=== PATIENT | female | born 1940 | race American Indian/Alaskan Native ===

== ENCOUNTER 2020-08-08 14:50 | Emergency (ER) | payer MEDICARE, OTHER ==
--- NOTE | 2020-08-08 16:16 | Emergency Department Report ---
HPI <NOLBERTO FINCH - Last Filed: 08/08/20 20:35> - HPI HPI: This is an 80-year-old -[place] female presents to the emergency department via EMS from her personal [facility] with the complaint of some low blood pressure. EMS found the patient had a blood pressure of about 90/60. The patient's blood pressure is within normal limits upon arrival here and the patient did not receive any IV fluid or any other treatments in route. The patient has a history of dementia. She told me that she feels "cold", but otherwise is not answering most questions. I spoke to the patient's son, who says that she will answer questions occasionally "when she feels like it." However, the patient is usually no better than AAO x1 to person, but not place or time. Apparently the patient's recruiting and selection consultant told the son that she has been dealing with some constipation and may have told the recruiting and selection consultant that she was having some throat pain. <FERNIEHENRIK S - Last Filed: 08/10/20 16:35> - General Chief Complaint: Altered Mental Status Time Seen by Provider: 08/08/20 15:27 ED Past Medical Hx <NOLBERTO FINCH - Last Filed: 08/08/20 20:35> - Past Medical History Previous Medical History?: Yes Hx Dementia: Yes - Surgical History Additional Surgical History: CONSTIPATION - Social History Smoking Status: Unknown if ever smoked <HENRIK ENCISO - Last Filed: 08/10/20 16:35> - Medications Home Medications: Home Medications Medication Instructions Recorded Confirmed Last Taken Type Docusate Sodium [Colace] 100 mg PO QDAY PRN #15 capsule 08/08/20 Unknown Rx ED Review of Systems ROS: Stated complaint: HYPOTENSIVE Other details as noted in HPI <NOLBERTO FINCH - Last Filed: 08/08/20 20:35> ROS: Stated complaint: HYPOTENSIVE Other details as noted in HPI Comment: Unobtainable due to pts medical conditions <FERNIEHENRIK Ellis - Last Filed: 08/10/20 16:35> Physical Exam - Physical Exam Vital Signs: Vital Signs 08/08/20 08/08/20 08/08/20 15:15 19:28 20:20 Temperature 97.8 F Pulse Rate 84 102 H Respiratory 18 18 Rate Blood Pressure 143/76 118/99 [Right] O2 Sat by Pulse 98 Oximetry <NOLBERTO FINCH - Last Filed: 08/08/20 20:35> - Physical Exam Vital Signs: Vital Signs 08/08/20 15:15 Pulse Rate 84 Blood Pressure 143/76 [Right] Physical Exam: GENERAL: The patient is well-developed well-nourished. HENT: Normocephalic. Atraumatic. Patient has moist mucous membranes. No tonsillar hypertrophy, erythema or exudates. EYES: Extraocular motions are intact. NECK: Supple. Trachea is midline. CHEST/LUNGS: Clear to auscultation. There is no respiratory distress noted. HEART/CARDIOVASCULAR: Regular. There is no tachycardia. There is no murmur. ABDOMEN: Abdomen is soft, nontender. Patient has normal bowel sounds. There is no abdominal distention. SKIN: Skin is warm and dry. NEURO: The patient is awake, but confused. Follows some commands. Withdraws from painful stimuli. MUSCULOSKELETAL: There is no tenderness or deformity. RECTAL: Stool is brown. No gross hematochezia or melena seen. <HENRIK ENCISO S - Last Filed: 08/10/20 16:35> ED Course Vital Signs 08/08/20 08/08/20 08/08/20 15:15 19:28 20:20 Temperature 97.8 F Pulse Rate 84 102 H Respiratory 18 18 Rate Blood Pressure 143/76 118/99 [Right] O2 Sat by Pulse 98 Oximetry - Reevaluation(s) Reevaluation #1: 08/08/20 20:35 The patient is in no acute distress. Heart rate 75 bpm. Urinalysis not con sistent with urinary tract infection. Patient resting comfortably on stretcher, does not appear to be in any acute distress. Plan for discharge. <NOLBERTO FINCH - Last Filed: 08/08/20 20:35> Vital Signs 08/08/20 15:15 Pulse Rate 84 Blood Pressure 143/76 [Right] <HENRIK ENCISO S - Last Filed: 08/10/20 16:35> ED Medical Decision Making - Lab Data Result diagrams: 08/08/20 16:11 08/08/20 16:11 Vital Signs 08/08/20 08/08/20 08/08/20 15:15 19:28 20:20 Temperature 97.8 F Pulse Rate 84 102 H Respiratory 18 18 Rate Blood Pressure 143/76 118/99 [Right] O2 Sat by Pulse 98 Oximetry Lab Results 08/08/20 08/08/20 08/08/20 Range/Units 16:11 16:11 16:11 WBC 9.6 (4.5-11.0) K/mm3 RBC 5.17 H (3.65-5.03) M/mm3 Hgb 14.3 (10.1-14.3) gm/dl Hct 43.1 H (30.3-42.9) % MCV 83 (79-97) fl MCH 28 (28-32) pg MCHC 33 (30-34) % RDW 15.6 H (13.2-15.2) % Plt Count 247 (140-440) K/mm3 Lymph % (Auto) 8.1 L (13.4-35.0) % [place] % (Auto) 5.1 (0.0-7.3) % Eos % (Auto) 0.3 (0.0-4.3) % Baso % (Auto) 0.1 (0.0-1.8) % Lymph # (Auto) 0.8 L (1.2-5.4) K/mm3 [place] # (Auto) 0.5 (0.0-0.8) K/mm3 Eos # (Auto) 0.0 (0.0-0.4) K/mm3 Baso # (Auto) 0.0 (0.0-0.1) K/mm3 Seg Neutrophils % 86.4 H (40.0-70.0) % Seg Neutrophils # 8.3 H (1.8-7.7) K/mm3 Sodium 139 (137-145) mmol/L Potassium 3.1 L (3.6-5.0) mmol/L Chloride 105.4 (98-107) mmol/L Carbon Dioxide 23 (22-30) mmol/L Anion Gap 14 mmol/L BUN 19 H (7-17) mg/dL Creatinine 0.7 (0.6-1.2) mg/dL Estimated GFR > 60 ml/min BUN/Creatinine Ratio 27 % Glucose 97 (65-100) mg/dL Calcium 8.9 (8.4-10.2) mg/dL Total Bilirubin 0.40 (0.1-1.2) mg/dL AST 27 (5-40) units/L ALT 16 (7-56) units/L Alkaline Phosphatase 84 (35-129) units/L Ammonia 45.0 (25-60) umol/L Troponin T < 0.010 (0.00-0.029) ng/mL Total Protein 7.2 (6.3-8.2) g/dL Albumin 3.9 (3.9-5) g/dL Albumin/Globulin Ratio 1.2 % TSH (0.270-4.200) mlU/mL Urine Color (Yellow) Urine Turbidity (Clear) Urine pH (5.0-7.0) Ur Specific [place] (1.003-1.030) Urine Protein (Negative) mg/dL Urine Glucose (UA) (Negative) mg/dL Urine Ketones (Negative) mg/dL Urine Blood (Negative) Urine Nitrite (Negative) Urine Bilirubin (Negative) Urine Urobilinogen (<2.0) mg/dL Ur Leukocyte Esterase (Negative) Urine WBC (Auto) (0.0-6.0) /HPF Urine RBC (Auto) (0.0-6.0) /HPF Urine Mucus /HPF 08/08/20 08/08/20 Range/Units 16:11 19:27 WBC (4.5-11.0) K/mm3 RBC (3.65-5.03) M/mm3 Hgb (10.1-14.3) gm/dl Hct (30.3-42.9) % MCV (79-97) fl MCH (28-32) pg MCHC (30-34) % RDW (13.2-15.2) % Plt Count (140-440) K/mm3 Lymph % (Auto) (13.4-35.0) % [place] % (Auto) (0.0-7.3) % Eos % (Auto) (0.0-4.3) % Baso % (Auto) (0.0-1.8) % Lymph # (Auto) (1.2-5.4) K/mm3 [place] # (Auto) (0.0-0.8) K/mm3 Eos # (Auto) (0.0-0.4) K/mm3 Baso # (Auto) (0.0-0.1) K/mm3 Seg Neutrophils % (40.0-70.0) % Seg Neutrophils # (1.8-7.7) K/mm3 Sodium (137-145) mmol/L Potassium (3.6-5.0) mmol/L Chloride (98-107) mmol/L Carbon Dioxide (22-30) mmol/L Anion Gap mmol/L BUN (7-17) mg/dL Creatinine (0.6-1.2) mg/dL Estimated GFR ml/min BUN/Creatinine Ratio % Glucose (65-100) mg/dL Calcium (8.4-10.2) mg/dL Total Bilirubin (0.1-1.2) mg/dL AST (5-40) units/L ALT (7-56) units/L Alkaline Phosphatase (35-129) units/L Ammonia (25-60) umol/L Troponin T (0.00-0.029) ng/mL Total Protein (6.3-8.2) g/dL Albumin (3.9-5) g/dL Albumin/Globulin Ratio % TSH 6.850 H (0.270-4.200) mlU/mL Urine Color Yellow (Yellow) Urine Turbidity Clear (Clear) Urine pH 6.0 (5.0-7.0) Ur Specific [place] 1.027 (1.003-1.030) Urine Protein 30 mg/dl (Negative) mg/dL Urine Glucose (UA) Neg (Negative) mg/dL Urine Ketones Neg (Negative) mg/dL Urine Blood Neg (Negative) Urine Nitrite Neg (Negative) Urine Bilirubin Neg (Negative) Urine Urobilinogen 4.0 (<2.0) mg/dL Ur Leukocyte Esterase Neg (Negative) Urine WBC (Auto) 1.0 (0.0-6.0) /HPF Urine RBC (Auto) 1.0 (0.0-6.0) /HPF Urine Mucus 2+ /HPF - Radiology Data [facility] [address] [place] [address] XRay Report Signed Patient: YANE ALEJANDRO MR#: [id number] : 1940 Acct:[id number] Age/Sex: 80 / F ADM Date: 08/08/20 Loc: ED Attending Dr: Ordering Physician: HENRIK ENCISO DO Date of Service: 08/08/20 Procedure(s): XR abd series w cxr 1V Accession Number(s): [id number] cc: HENRIK ENCISO DO Fluoro Time In Minutes: XR abd series w cxr 1V INDICATION / CLINICAL INFORMATION: cough, abd pain. COMPARISON: None available. FINDINGS: SUPPORT DEVICES: None. HEART / MEDIASTINUM: No significant abnormality. LUNGS / PLEURA: Lungs are clear. Costophrenic sulci are sharp. No pneumothorax. ABDOMEN: Large quantity of stool no rectum. Nonobstructive bowel gas pattern. No pneumoperitoneum. ADDITIONAL FINDINGS: No significant additional findings. IMPRESSION: 1. No acute findings. 2. Large quantity of stool in the rectum. Correlate for rectal impaction. Signer Name: Jordan Kirk MD Signed: 08/08/2020 5:23 PM Workstation Name: [id number] Transcribed By: EMMANUELLE Dictated By: Jordan Kirk MD Electronically Authenticated By: Jordan Kirk MD Signed Date/Time: 08/08/20 1723 <NOLBERTO FINCH - Last Filed: 08/08/20 20:35> - Lab Data Result diagrams: 08/08/20 16:11 08/08/20 16:11 - EKG Data -: EKG Interpreted by Me EKG shows normal: sinus rhythm, axis, intervals, QRS complexes, ST-T waves Rate: normal - EKG Data When compared to previous EKG there are: previous EKG unavailable Interpretation: normal EKG - Radiology Data Radiology results: image reviewed interpreted by me: Chest x-ray does not show any acute process. There are no pleural effusions, obvious pneumonia and there is no pneumothorax. No significant cardiomegaly. Abdominal x-ray shows increased stool volume with some concern for possible fecal impaction. No free air. Bowel gas is nonobstructive in appearance. - Medical Decision Making This patient was sent in from her personal [facility] with concern for some borderline hypotension with a blood pressure of about 90/60. The patient's blood pressure improved upon arrival and has remained throughout her ED course thus far. Patient's labs have been mostly unremarkable including CBC and metabolic panel except for some mild hypokalemia with a potassium of 3.1 and concern for some hypothyroidism with a TSH of about 6.8. She was given some potassium chloride. Chest x-ray did not show any pneumonia, pleural effusions, pneumothorax, or any other acute process. Abdominal x-ray shows increased stool volume with concern for rectal impaction. Otherwise it shows nonspecific nonobstructive bowel gas. I attempted a fecal disimpaction. I was not able to remove much stool from the rectum. However, shortly afterwards the patient had a bowel movement. Patient had a straight cath and I am waiting for the urinalysis to see if the patient has a UTI. I once again spoke with the patient's son and updated him regarding all of the lab and imaging findings. He says that he will be happy to come and scrap picker his mother from the emergency department upon discharge. Per my discussions with the patient's son, she appears to be at her baseline mental status with her history of dementia. <HENRIK ENCISO S - Last Filed: 08/10/20 16:35> Critical care attestation.: If time is entered above; I have spent that time in minutes in the direct care of this critically ill patient, excluding procedure time. <JOSETTENOLBERTO - Last Filed: 08/08/20 20:35> Critical Care Time: No Critical care attestation.: If time is entered above; I have spent that time in minutes in the direct care of this critically ill patient, excluding procedure time. <HENRIK ENCISO S - Last Filed: 08/10/20 16:35> ED Disposition Is pt being admited?: No Does the pt Need Aspirin: No <JOSETTENOLBERTO - Last Filed: 08/08/20 20:35> Is pt being admited?: No <HENRIK ENCISO S - Last Filed: 08/10/20 16:35> Clinical Impression: Hypokalemia, Increased stool volume Dementia Qualifiers: Dementia type: unspecified type Dementia behavioral disturbance: without behavioral disturbance Qualified Code(s): F03.90 - Unspecified dementia without behavioral disturbance Disposition: DC-01 TO HOME OR SELFCARE Condition: Stable Instructions: Hypokalemia, Constipation, Adult, Dementia Additional Instructions: Please follow-up with your primary care physician in the next few days. Return to the emergency department with any worsening of your symptoms, new or concerning symptoms not addressed during this current emergency department visit, or with any acute distress. Prescriptions: Docusate Sodium [Colace] 100 mg PO QDAY PRN #15 capsule PRN Reason: Constipation Referrals: MICHELINE DE JESUS MD [Primary Care Provider] - 2-3 Days
[2020-08-08 16:39] LABS: Basophils % (Auto) 0.1 % (0.0-1.8); Eosinophils % (Auto) 0.3 % (0.0-4.3); Hematocrit 43.1 % (30.3-42.9); Hemoglobin 14.3 gm/dl (10.1-14.3); Lymphocytes # (Auto) 0.8 K/mm3 (1.2-5.4); Lymphocytes % (Auto) 8.1 % (13.4-35.0); Mean Corpuscular HGB Conc 33 % (30-34); Mean Corpuscular Volume 83 fl (79-97); Monocytes # (Auto) 0.5 K/mm3 (0.0-0.8); Monocytes % (Auto) 5.1 % (0.0-7.3); Platelet Count 247 K/mm3 (140-440); Red Blood Count 5.17 M/mm3 (3.65-5.03); Red Cell Distribution Width 15.6 % (13.2-15.2)
[2020-08-08 17:18] LABS: Alanine Aminotransferase 16 units/L (7-56); Albumin 3.9 g/dL (3.9-5); Blood Urea Nitrogen 19 mg/dL (7-17); Calcium 8.9 mg/dL (8.4-10.2); Hemolysis Index 8
[2020-08-08] MEDS ORDERED: POTASSIUM CHLORIDE ER 10 MEQ TAB PO ONE (17:22)
[2020-08-08 17:25] LABS: BUN/Creatinine Ratio 27
--- NOTE | 2020-08-08 17:27 | XRay Report ---
XR abd series w cxr 1V INDICATION / CLINICAL INFORMATION: cough, abd pain. COMPARISON: None available. FINDINGS: SUPPORT DEVICES: None. HEART / MEDIASTINUM: No significant abnormality. LUNGS / PLEURA: Lungs are clear. Costophrenic sulci are sharp. No pneumothorax. ABDOMEN: Large quantity of stool no rectum. Nonobstructive bowel gas pattern. No pneumoperitoneum. ADDITIONAL FINDINGS: No significant additional findings. IMPRESSION: 1. No acute findings. 2. Large quantity of stool in the rectum. Correlate for rectal impaction. Signer Name: Jordan Kirk MD Signed: 08/08/2020 5:23 PM Workstation Name: [id number]
[2020-08-08 20:12] LABS: Bilirubin,Urine NEG (Negative); Blood,Urine NEG (Negative); Color,Urine Yellow (Yellow); Mucus,Urine 2+ /HPF
[2020-08-08 21:31] VITALS: BP 156/98
--- NOTE | 2020-08-10 10:37 | Electrocardiograph Report ---
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
== END 2020-08-08 21:43 | disposition home or self-care (01) ==
LOC: ED 14:50
DX: F03.90 Unspecified dementia, unspecified severity, without behavioral disturbance, psychotic disturbance, mood disturbance, and anxiety (principal); E87.6 Hypokalemia; K59.00 Constipation, unspecified; Z98.890 Other specified postprocedural states; Z79.899 Other long term (current) drug therapy
CPT/HCPCS: 36415; 74022; 80053; 81001; 82140; 84443; 84484; 85025; 93005

== ENCOUNTER 2020-08-10 11:30 | Inpatient (IN) | payer MEDICARE, OTHER ==
[2020-08-10] MEDS ORDERED: SODIUM CHLORIDE 0.9% 1000 ML 1,000 ML IV ONE ×2 (12:11→14:46)
--- NOTE | 2020-08-10 12:48 | XRay Report ---
CHEST 1 VIEW 08/10/2020 11:42 AM INDICATION / CLINICAL INFORMATION: Altered Mental Status. COMPARISON: 08/08/20 FINDINGS: SUPPORT DEVICES: None. HEART / MEDIASTINUM: No significant abnormality. LUNGS / PLEURA: Interval development of patchy bilateral pulmonary opacities. No pneumothorax. ADDITIONAL FINDINGS: No significant additional findings. IMPRESSION: 1. Patchy bilateral pulmonary opacities could represent pneumonia. Signer Name: Maulik Mesa MD Signed: 08/10/2020 12:44 PM Workstation Name: [id number]
--- NOTE | 2020-08-10 13:24 | Cat Scan Report ---
CT HEAD WITHOUT CONTRAST INDICATION / CLINICAL INFORMATION: Altered Mental Status. TECHNIQUE: All CT scans at this location are performed using CT dose reduction for ALARA by means of automated e xposure control. COMPARISON: None available. FINDINGS: HEMORRHAGE: No evidence of intracranial hemorrhage or extra-axial fluid collection. EXTRA-AXIAL SPACES: Cortical sulci and sylvian fissures are enlarged reflecting a degree of parenchym al volume loss which is within normal limits for the patient's age of 80 years. Basilar cisterns have an unremarkable appearance. VENTRICULAR SYSTEM: The third and lateral ventricles are mildly enlarged reflecting presence of age r elated parenchymal volume loss. CEREBRAL PARENCHYMA: Periventricular and deep white matter lucency is observed. This is probably seco ndary to microvascular ischemic change. There is no indication of recent infarction. No areas of ence phalomalacia are identified. MIDLINE SHIFT OR HERNIATION: There is no mass effect. CEREBELLUM / BRAINSTEM: Brainstem has an unremarkable appearance. Age related cerebellar atrophy is n oted. MIDLINE STRUCTURES:Pituitary gland has an unremarkable appearance. No abnormalities are seen in the p ineal region. INTRACRANIAL VESSELS:Calcified atherosclerotic plaque is present along the course of the cavernous se gments of both internal carotid arteries. Similar findings are seen at the distal vertebral arteries. ORBITS: Status post bilateral cataract surgery. No additional abnormality. SOFT TISSUES of HEAD: No significant abnormality. CALVARIUM: Moderate hyperostosis is observed along the inner tables of the frontal and parietal bones bilaterally. PARANASAL SINUSES / MASTOID AIR CELLS: An air-fluid levels present in the left sphenoid sinus where c ircumferential mucosal thickening is also observed. Possibility of left sphenoid sinusitis should be considered. Paranasal sinuses are otherwise free from inflammatory mucosal disease. ADDITIONAL FINDINGS: None. IMPRESSION: 1. Age-related involutional changes of parenchymal volume loss and microvascular ischemia. 2. Consider left sphenoid sinusitis. Signer Name: Duane Bhatti MD Signed: 08/10/2020 1:19 PM Workstation Name: [id number]
[2020-08-10 13:39] LABS: Hematocrit 43.5 % (30.3-42.9); Hemoglobin 14.5 gm/dl (10.1-14.3); Mean Corpuscular HGB Conc 33 % (30-34); Mean Corpuscular Volume 84 fl (79-97); Platelet Count 202 K/mm3 (140-440); Red Blood Count 5.19 M/mm3 (3.65-5.03)
[2020-08-10 13:49] LABS: INR 1.37 (0.87-1.13)
[2020-08-10 13:50] LABS: Partial Thromboplastin Time 34.7 Sec. (24.2-36.6)
[2020-08-10] MEDS ORDERED: AZITHROMYCIN/NS 500 MG/250 ML 500 MG/250 ML BAG IV ONE (14:25)
[2020-08-10] MEDS ORDERED: cefTRIAXone/NS 1 GM/50 ML 1 GM/50 ML BAG IV ONE (14:25)
[2020-08-10 14:26] LABS: Alanine Aminotransferase 13 units/L (7-56); Albumin 3.3 g/dL (3.9-5); BUN/Creatinine Ratio 32; Blood Urea Nitrogen 45 mg/dL (7-17); Calcium 9.8 mg/dL (8.4-10.2); Hemolysis Index 10
[2020-08-10 14:30] LABS: Band Neutrophils # (Manual) 1.5 K/mm3; Total Cells Counted 100
[2020-08-10 14:31] LABS: Burr Cells 1+; Platelet Estimate Consistent w Auto; Poikilocytosis 1+
[2020-08-10 14:36] LABS: Bilirubin,Urine SM (Negative); Blood,Urine NEG (Negative); Color,Urine Amber (Yellow); Hyaline Casts,Urine 1 /LPF; Mucus,Urine FEW /HPF
--- NOTE | 2020-08-10 14:46 | Emergency Department Report ---
ED General Adult HPI - General Chief complaint: Altered Mental Status Stated complaint: ALTERED MENTAL STATUS Time Seen by Provider: 08/10/20 12:07 Source: EMS Mode of arrival: Stretcher Limitations: Altered Mental Status - History of Present Illness Initial comments: The patient presents to the emergency department from a local personal long-term for altered mental status. Patient was seen here on Monday for hypotension. Upon the patient's arrival to the emergency department on the previous visit patient was not hypotensive. The patient was also not able to add to the history. -: unknown Improves with: none Worsens with: none Associated Symptoms: denies other symptoms Treatments Prior to Arrival: none - Related Data Previous Rx's Medication Instructions Recorded Last Taken Type Docusate Sodium [Colace] 100 mg PO QDAY PRN #15 capsule 08/08/20 Unknown Rx Allergies Allergy/AdvReac Type Severity Reaction Status Date / Time No Known Allergies Allergy Verified 08/08/20 17:23 ED Review of Systems ROS: Stated complaint: ALTERED MENTAL STATUS Other details as noted in HPI Comment: Unobtainable due to pts medical conditions ED Past Medical Hx - Past Medical History Hx Dementia: Yes - Surgical History Additional Surgical History: CONSTIPATION - Social History Smoking Status: Unknown if ever smoked - Medications Home Medications: Home Medications Medication Instructions Recorded Confirmed Last Taken Type Docusate Sodium [Colace] 100 mg PO QDAY PRN #15 capsule 08/08/20 Unknown Rx ED Physical Exam - General Limitations: Altered Mental Status - ENT ENT exam: Present: mucous membranes dry - Neck Neck exam: Present: normal inspection - Respiratory Respiratory exam: Present: decreased breath sounds. Absent: respiratory distress - Cardiovascular Cardiovascular Exam: Present: tachycardia - GI/Abdominal GI/Abdominal exam: Present: soft, normal bowel sounds. Absent: distended - Extremities Exam Extremities exam: Present: other (Patient has her lower extremities pulled up to her chest and is resistant to me changing positions of her legs which leads me to believe that the patient has baseline contractures) - Neurological Exam Neurological exam: Present: altered, other (Not able to completely assess due to the patient's altered mental status) - Psychiatric Psychiatric exam: Present: other (Not able to assess due to the patient's altered mental status) - Skin Skin exam: Present: warm, dry. Absent: rash ED Course Vital Signs 08/10/20 08/10/20 08/10/20 11:58 12:00 12:10 Pulse Rate 118 H 126 H 130 H Respiratory 31 H 30 H 22 Rate Blood Pressure 115/61 115/78 O2 Sat by Pulse 100 95 99 Oximetry 08/10/20 08/10/20 08/10/20 12:16 12:30 12:56 Pulse Rate 122 H 129 H 125 H Respiratory 33 H 28 H 24 Rate Blood Pressure 115/61 108/73 108/73 O2 Sat by Pulse Oximetry 08/10/20 08/10/20 08/10/20 13:00 13:16 13:30 Pulse Rate 124 H 126 H 126 H Respiratory 36 H 29 H 31 H Rate Blood Pressure 108/73 108/73 108/65 O2 Sat by Pulse 100 98 Oximetry 08/10/20 08/10/20 08/10/20 13:46 14:00 14:16 Pulse Rate 134 H 129 H 123 H Respiratory 23 24 29 H Rate Blood Pressure 108/73 116/78 116/78 O2 Sat by Pulse 98 Oximetry 08/10/20 08/10/20 08/10/20 14:30 14:46 15:00 Pulse Rate 122 H 122 H 125 H Respiratory 24 23 26 H Rate Blood Pressure 128/78 128/78 129/72 O2 Sat by Pulse 96 Oximetry ED Medical Decision Making - Lab Data Result diagrams: 08/10/20 13:12 08/10/20 13:12 Lab Results 08/10/20 08/10/20 08/10/20 Range/Units 13:12 13:12 13:12 WBC 5.1 (4.5-11.0) K/mm3 RBC 5.19 H (3.65-5.03) M/mm3 Hgb 14.5 H (10.1-14.3) gm/dl Hct 43.5 H (30.3-42.9) % MCV 84 (79-97) fl MCH 28 (28-32) pg MCHC 33 (30-34) % RDW 16.0 H (13.2-15.2) % Plt Count 202 (140-440) K/mm3 Add Manual Diff Complete Total Counted 100 Seg Neuts % (Manual) 55.0 (40.0-70.0) % Band Neutrophils % 29.0 % Lymphocytes % (Manual) 10.0 L (13.4-35.0) % Monocytes % (Manual) 5.0 (0.0-7.3) % Metamyelocytes % 1.0 % Nucleated RBC % Not Reportable Seg Neutrophils # Man 2.8 (1.8-7.7) K/mm3 Band Neutrophils # 1.5 K/mm3 Lymphocytes # (Manual) 0.5 L (1.2-5.4) K/mm3 Abs React Lymphs (Man) 0.0 K/mm3 Monocytes # (Manual) 0.3 (0.0-0.8) K/mm3 Eosinophils # (Manual) 0.0 (0.0-0.4) K/mm3 Basophils # (Manual) 0.0 (0.0-0.1) K/mm3 Metamyelocytes # 0.1 K/mm3 Myelocytes # 0.0 K/mm3 Promyelocytes # 0.0 K/mm3 Blast Cells # 0.0 K/mm3 WBC Morphology Not Reportable Hypersegmented Neuts Not Reportable Hyposegmented Neuts Not Reportable Hypogranular Neuts Not Reportable Smudge Cells Not Reportable Toxic Granulation Not Reportable Toxic Vacuolation Not Reportable Dohle Bodies Not Reportable Pelger-Huet Anomaly Not Reportable Muriel Rods Not Reportable Platelet Estimate Consistent w auto Clumped Platelets Not Reportable Plt Clumps, EDTA Not Reportable Large Platelets Not Reportable Giant Platelets Not Reportable Platelet Satelliting Not Reportable Plt Morphology Comment Not Reportable RBC Morphology Not Reportable Dimorphic RBCs Not Reportable Polychromasia Not Reportable Hypochromasia Not Reportable Poikilocytosis 1+ Anisocytosis Not Reportable Microcytosis Not Reportable Macrocytosis Not Reportable Spherocytes Not Reportable Pappenheimer Bodies Not Reportable Sickle Cells Not Reportable Target Cells Not Reportable Tear Drop Cells Not Reportable Ovalocytes Not Reportable Helmet Cells Not Reportable [place] Bodies Not Reportable [place] Rings Not Reportable Natalya Cells 1+ Bite Cells Not Reportable Crenated Cell Not Reportable Elliptocytes Not Reportable Acanthocytes (Spur) Few Rouleaux Not Reportable Hemoglobin C Crystals Not Reportable Schistocytes Not Reportable Malaria parasites Not Reportable Christian Bodies Not Reportable Hem Pathologist Commnt No PT 16.7 H (12.2-14.9) Sec. INR 1.37 H (0.87-1.13) APTT 34.7 (24.2-36.6) Sec. Sodium (137-145) mmol/L Potassium (3.6-5.0) mmol/L Chloride (98-107) mmol/L Carbon Dioxide (22-30) mmol/L Anion Gap mmol/L BUN (7-17) mg/dL Creatinine (0.6-1.2) mg/dL Estimated GFR ml/min BUN/Creatinine Ratio % Glucose (65-100) mg/dL Lactic Acid 3.80 H* (0.7-2.0) mmol/L Calcium (8.4-10.2) mg/dL Total Bilirubin (0.1-1.2) mg/dL AST (5-40) units/L ALT (7-56) units/L Alkaline Phosphatase (35-129) units/L Ammonia (25-60) umol/L Troponin T (0.00-0.029) ng/mL Total Protein (6.3-8.2) g/dL Albumin (3.9-5) g/dL Albumin/Globulin Ratio % Urine Color (Yellow) Urine Turbidity (Clear) Urine pH (5.0-7.0) Ur Specific [place] (1.003-1.030) Urine Protein (Negative) mg/dL Urine Glucose (UA) (Negative) mg/dL Urine Ketones (Negative) mg/dL Urine Blood (Negative) Urine Nitrite (Negative) Urine Bilirubin (Negative) Urine Ictotest (Negative) Urine Urobilinogen (<2.0) mg/dL Ur Leukocyte Esterase (Negative) Urine WBC (Auto) (0.0-6.0) /HPF Urine RBC (Auto) (0.0-6.0) /HPF U Epithel Cells (Auto) (0-13.0) /HPF Hyaline Casts /LPF Urine Mucus /HPF 08/10/20 08/10/20 08/10/20 Range/Units 13:12 13:12 14:33 WBC (4.5-11.0) K/mm3 RBC (3.65-5.03) M/mm3 Hgb (10.1-14.3) gm/dl Hct (30.3-42.9) % MCV (79-97) fl MCH (28-32) pg MCHC (30-34) % RDW (13.2-15.2) % Plt Count (140-440) K/mm3 Add Manual Diff Total Counted Seg Neuts % (Manual) (40.0-70.0) % Band Neutrophils % % Lymphocytes % (Manual) (13.4-35.0) % Monocytes % (Manual) (0.0-7.3) % Metamyelocytes % % Nucleated RBC % Seg Neutrophils # Man (1.8-7.7) K/mm3 Band Neutrophils # K/mm3 Lymphocytes # (Manual) (1.2-5.4) K/mm3 Abs React Lymphs (Man) K/mm3 Monocytes # (Manual) (0.0-0.8) K/mm3 Eosinophils # (Manual) (0.0-0.4) K/mm3 Basophils # (Manual) (0.0-0.1) K/mm3 Metamyelocytes # K/mm3 Myelocytes # K/mm3 Promyelocytes # K/mm3 Blast Cells # K/mm3 WBC Morphology Hypersegmented Neuts Hyposegmented Neuts Hypogranular Neuts Smudge Cells Toxic Granulation Toxic Vacuolation Dohle Bodies Pelger-Huet Anomaly Muriel Rods Platelet Estimate Clumped Platelets Plt Clumps, EDTA Large Platelets Giant Platelets Platelet Satelliting Plt Morphology Comment RBC Morphology Dimorphic RBCs Polychromasia Hypochromasia Poikilocytosis Anisocytosis Microcytosis Macrocytosis Spherocytes Pappenheimer Bodies Sickle Cells Target Cells Tear Drop Cells Ovalocytes Helmet Cells [place] Bodies [place] Rings Natalya Cells Bite Cells Crenated Cell Elliptocytes Acanthocytes (Spur) Rouleaux Hemoglobin C Crystals Schistocytes Malaria parasites Christian Bodies Hem Pathologist Commnt PT (12.2-14.9) Sec. INR (0.87-1.13) APTT (24.2-36.6) Sec. Sodium 142 (137-145) mmol/L Potassium 3.8 D (3.6-5.0) mmol/L Chloride 104.4 (98-107) mmol/L Carbon Dioxide 22 (22-30) mmol/L Anion Gap 19 mmol/L BUN 45 H (7-17) mg/dL Creatinine 1.4 H D (0.6-1.2) mg/dL Estimated GFR 44 ml/min BUN/Creatinine Ratio 32 % Glucose 93 (65-100) mg/dL Lactic Acid 3.40 H* (0.7-2.0) mmol/L Calcium 9.8 (8.4-10.2) mg/dL Total Bilirubin 0.70 (0.1-1.2) mg/dL AST 24 (5-40) units/L ALT 13 (7-56) units/L Alkaline Phosphatase 68 (35-129) units/L Ammonia 36.0 (25-60) umol/L Troponin T < 0.010 (0.00-0.029) ng/mL Total Protein 6.8 (6.3-8.2) g/dL Albumin 3.3 L (3.9-5) g/dL Albumin/Globulin Ratio 0.9 % Urine Color (Yellow) Urine Turbidity (Clear) Urine pH (5.0-7.0) Ur Specific [place] (1.003-1.030) Urine Protein (Negative) mg/dL Urine Glucose (UA) (Negative) mg/dL Urine Ketones (Negative) mg/dL Urine Blood (Negative) Urine Nitrite (Negative) Urine Bilirubin (Negative) Urine Ictotest (Negative) Urine Urobilinogen (<2.0) mg/dL Ur Leukocyte Esterase (Negative) Urine WBC (Auto) (0.0-6.0) /HPF Urine RBC (Auto) (0.0-6.0) /HPF U Epithel Cells (Auto) (0-13.0) /HPF Hyaline Casts /LPF Urine Mucus /HPF 04// Range/Units Unknown WBC (4.5-11.0) K/mm3 RBC (3.65-5.03) M/mm3 Hgb (10.1-14.3) gm/dl Hct (30.3-42.9) % MCV (79-97) fl MCH (28-32) pg MCHC (30-34) % RDW (13.2-15.2) % Plt Count (140-440) K/mm3 Add Manual Diff Total Counted Seg Neuts % (Manual) (40.0-70.0) % Band Neutrophils % % Lymphocytes % (Manual) (13.4-35.0) % Monocytes % (Manual) (0.0-7.3) % Metamyelocytes % % Nucleated RBC % Seg Neutrophils # Man (1.8-7.7) K/mm3 Band Neutrophils # K/mm3 Lymphocytes # (Manual) (1.2-5.4) K/mm3 Abs React Lymphs (Man) K/mm3 Monocytes # (Manual) (0.0-0.8) K/mm3 Eosinophils # (Manual) (0.0-0.4) K/mm3 Basophils # (Manual) (0.0-0.1) K/mm3 Metamyelocytes # K/mm3 Myelocytes # K/mm3 Promyelocytes # K/mm3 Blast Cells # K/mm3 WBC Morphology Hypersegmented Neuts Hyposegmented Neuts Hypogranular Neuts Smudge Cells Toxic Granulation Toxic Vacuolation Dohle Bodies Pelger-Huet Anomaly Muriel Rods Platelet Estimate Clumped Platelets Plt Clumps, EDTA Large Platelets Giant Platelets Platelet Satelliting Plt Morphology Comment RBC Morphology Dimorphic RBCs Polychromasia Hypochromasia Poikilocytosis Anisocytosis Microcytosis Macrocytosis Spherocytes Pappenheimer Bodies Sickle Cells Target Cells Tear Drop Cells Ovalocytes Helmet Cells Read[place] Bodies [place] Rings Natalya Cells Bite Cells Crenated Cell Elliptocytes Acanthocytes (Spur) Rouleaux Hemoglobin C Crystals Schistocytes Malaria parasites Christian Bodies Hem Pathologist Commnt PT (12.2-14.9) Sec. INR (0.87-1.13) APTT (24.2-36.6) Sec. Sodium (137-145) mmol/L Potassium (3.6-5.0) mmol/L Chloride (98-107) mmol/L Carbon Dioxide (22-30) mmol/L Anion Gap mmol/L BUN (7-17) mg/dL Creatinine (0.6-1.2) mg/dL Estimated GFR ml/min BUN/Creatinine Ratio % Glucose (65-100) mg/dL Lactic Acid (0.7-2.0) mmol/L Calcium (8.4-10.2) mg/dL Total Bilirubin (0.1-1.2) mg/dL AST (5-40) units/L ALT (7-56) units/L Alkaline Phosphatase (35-129) units/L Ammonia (25-60) umol/L Troponin T (0.00-0.029) ng/mL Total Protein (6.3-8.2) g/dL Albumin (3.9-5) g/dL Albumin/Globulin Ratio % Urine Color [place] (Yellow) Urine Turbidity Clear (Clear) Urine pH 5.0 (5.0-7.0) Ur Specific [place] 1.026 (1.003-1.030) Urine Protein 30 mg/dl (Negative) mg/dL Urine Glucose (UA) Neg (Negative) mg/dL Urine Ketones Neg (Negative) mg/dL Urine Blood Neg (Negative) Urine Nitrite Neg (Negative) Urine Bilirubin Sm (Negative) Urine Ictotest Negative (Negative) Urine Urobilinogen 4.0 (<2.0) mg/dL Ur Leukocyte Esterase Neg (Negative) Urine WBC (Auto) 4.0 (0.0-6.0) /HPF Urine RBC (Auto) 1.0 (0.0-6.0) /HPF U Epithel Cells (Auto) 1.0 (0-13.0) /HPF Hyaline Casts 1 /LPF Urine Mucus Few /HPF - Radiology Data Radiology results: report reviewed - Medical Decision Making IV antibiotics and IV fluids given Critical Care Time: Yes Critical care time in (mins) excluding proc time.: 35 Critical care attestation.: If time is entered above; I have spent that time in minutes in the direct care of this critically ill patient, excluding procedure time. ED Disposition Clinical Impression: Altered mental status, Bilateral pneumonia, Sepsis Disposition: DC-09 OP ADMIT IP TO THIS HOSP Is pt being admited?: Yes Does the pt Need Aspirin: No Condition: Fair Instructions: Bacterial Pneumonia (ED) Referrals: MICHELINE DE JESUS MD [Primary Care Provider] - 3-5 Days
[2020-08-10 14:47] LABS: Ictotest,Urine Negative (Negative)
[2020-08-10] MEDS ORDERED: ACETAMINOPHEN 650 MG RECT SUPP PR ONE (20:41)
[2020-08-10] MEDS ORDERED: dexAMETHasone 4 MG/ML VIAL IV SCH (23:45)
--- NOTE | 2020-08-10 23:45 | History and Physical Report ---
History of Present Illness Date of examination: 08/10/20 Date of admission: 08/10/20 15:33 Chief complaint: Decreased responsiveness for 1 day History of present illness: 80-year-old female with history of dementia of lives in personal detention sent from there for altered mental status. Patient was seen in the emergency room on Monday which is 2 days ago for hypotension. Patient is a poor historian. Patient is not hypertensive or hypotensive today. Patient has bilateral patchy opacities on the chest x-ray and hypoxic as the admission. - Past Medical History Hx Dementia: Yes - Surgical History Additional Surgical History: None - Social History Smoking Status: Unknown if ever smoked Lives at personal detention Family history unknown - Medications Home Medications: Home Medications Medication Instructions Recorded Confirmed Last Taken Type Docusate Sodium [Colace] 100 mg PO QDAY PRN #15 capsule 08/08/20 Unknown Rx Review of Systems ROS: Constitutional feels weak HEENT no sore throat no post nasal drip no diplopia Neck no neck stiffness no lymph gland enlargement Chest and lungs shortness of breath and cough present. CVS no chest pain no diaphoresis no palpitations GI no nausea no vomiting no diarrhea Genitourinary system no dysuria no flank pain Musculoskeletal system no muscle pains no joint pains [employer] no syncope no seizures Skin no rash no itching Psychiatric no depression no homicidal or suicidal tendencies Hematologic no lymphedema or bruising Endocrine no polydipsia no polyuria no cold intolerance no heat intolerance Medications and Allergies Allergies Allergy/AdvReac Type Severity Reaction Status Date / Time No Known Allergies Allergy Verified 08/08/20 17:23 Home Medications Medication Instructions Recorded Confirmed Last Taken Type Docusate Sodium [Colace] 100 mg PO QDAY PRN #15 capsule 08/08/20 Unknown Rx Exam - Constitutional Vitals: Temp Pulse Resp BP Pulse Ox 99.2 F 111 H 22 126/73 100 08/10/20 23:40 08/10/20 22:30 08/10/20 22:30 08/10/20 22:30 08/10/20 22:30 General appearance: Present: no acute distress, mild distress, well-nourished - EENT Eyes: Present: PERRL ENT: hearing intact, clear oral mucosa - Neck Neck: Present: supple, normal ROM - Respiratory Respiratory effort: normal Respiratory: bilateral: CTA, rhonchi - Cardiovascular Heart rate: 88 Heart Sounds: Present: S1 & S2. Absent: rub, click - Extremities Extremities: pulses symmetrical, No edema Peripheral Pulses: within normal limits - Abdominal General gastrointestinal: Present: soft, non-tender, non-distended, normal bowel sounds Female genitourinary: Present: normal - Integumentary Integumentary: Present: clear, warm, dry - Musculoskeletal Musculoskeletal: gait normal, strength equal bilaterally - Psychiatric Psychiatric: appropriate mood/affect, intact judgment & insight - Neurologic Neurologic: CNII-XII intact, moves all extremities - Allied Health Allied health notes reviewed: nursing, case management HEART Score - HEART Score Troponin: Troponin T < 0.010 ng/mL (0.00-0.029) 08/10/20 13:12 Results - Labs CBC & Chem 7: 08/10/20 13:12 08/10/20 13:12 Labs: Laboratory Last Values WBC 5.1 K/mm3 (4.5-11.0) 08/10/20 13:12 RBC 5.19 M/mm3 (3.65-5.03) H 08/10/20 13:12 Hgb 14.5 gm/dl (10.1-14.3) H 08/10/20 13:12 Hct 43.5 % (30.3-42.9) H 08/10/20 13:12 MCV 84 fl (79-97) 08/10/20 13:12 MCH 28 pg (28-32) 08/10/20 13:12 MCHC 33 % (30-34) 08/10/20 13:12 RDW 16.0 % (13.2-15.2) H 08/10/20 13:12 Plt Count 202 K/mm3 (140-440) 08/10/20 13:12 Add Manual Diff Complete 08/10/20 13:12 Total Counted 100 08/10/20 13:12 Seg Neuts % (Manual) 55.0 % (40.0-70.0) 08/10/20 13:12 Band Neutrophils % 29.0 % 08/10/20 13:12 Lymphocytes % (Manual) 10.0 % (13.4-35.0) L 08/10/20 13:12 Monocytes % (Manual) 5.0 % (0.0-7.3) 08/10/20 13:12 Metamyelocytes % 1.0 % 08/10/20 13:12 Nucleated RBC % Not Reportable 08/10/20 13:12 Seg Neutrophils # Man 2.8 K/mm3 (1.8-7.7) 08/10/20 13:12 Band Neutrophils # 1.5 K/mm3 08/10/20 13:12 Lymphocytes # (Manual) 0.5 K/mm3 (1.2-5.4) L 08/10/20 13:12 Abs React Lymphs (Man) 0.0 K/mm3 08/10/20 13:12 Monocytes # (Manual) 0.3 K/mm3 (0.0-0.8) 08/10/20 13:12 Eosinophils # (Manual) 0.0 K/mm3 (0.0-0.4) 08/10/20 13:12 Basophils # (Manual) 0.0 K/mm3 (0.0-0.1) 08/10/20 13:12 Metamyelocytes # 0.1 K/mm3 08/10/20 13:12 Myelocytes # 0.0 K/mm3 08/10/20 13:12 Promyelocytes # 0.0 K/mm3 08/10/20 13:12 Blast Cells # 0.0 K/mm3 08/10/20 13:12 WBC Morphology Not Reportable 08/10/20 13:12 Hypersegmented Neuts Not Reportable 08/10/20 13:12 Hyposegmented Neuts Not Reportable 08/10/20 13:12 Hypogranular Neuts Not Reportable 08/10/20 13:12 Smudge Cells Not Reportable 08/10/20 13:12 Toxic Granulation Not Reportable 08/10/20 13:12 Toxic Vacuolation Not Reportable 08/10/20 13:12 Dohle Bodies Not Reportable 08/10/20 13:12 Pelger-Huet Anomaly Not Reportable 08/10/20 13:12 Muriel Rods Not Reportable 08/10/20 13:12 Platelet Estimate Consistent w auto 08/10/20 13:12 Clumped Platelets Not Reportable 08/10/20 13:12 Plt Clumps, EDTA Not Reportable 08/10/20 13:12 Large Platelets Not Reportable 08/10/20 13:12 Giant Platelets Not Reportable 08/10/20 13:12 Platelet Satelliting Not Reportable 08/10/20 13:12 Plt Morphology Comment Not Reportable 08/10/20 13:12 RBC Morphology Not Reportable 08/10/20 13:12 Dimorphic RBCs Not Reportable 08/10/20 13:12 Polychromasia Not Reportable 08/10/20 13:12 Hypochromasia Not Reportable 08/10/20 13:12 Poikilocytosis 1+ 08/10/20 13:12 Anisocytosis Not Reportable 08/10/20 13:12 Microcytosis Not Reportable 08/10/20 13:12 Macrocytosis Not Reportable 08/10/20 13:12 Spherocytes Not Reportable 08/10/20 13:12 Pappenheimer Bodies Not Reportable 08/10/20 13:12 Sickle Cells Not Reportable 08/10/20 13:12 Target Cells Not Reportable 08/10/20 13:12 Tear Drop Cells Not Reportable 08/10/20 13:12 Ovalocytes Not Reportable 08/10/20 13:12 Helmet Cells Not Reportable 08/10/20 13:12 Read-[place] Bodies Not Reportable 08/10/20 13:12 [place] Rings Not Reportable 08/10/20 13:12 [place] Cells 1+ 08/10/20 13:12 Bite Cells Not Reportable 08/10/20 13:12 Crenated Cell Not Reportable 08/10/20 13:12 Elliptocytes Not Reportable 08/10/20 13:12 Acanthocytes (Spur) Few 08/10/20 13:12 Rouleaux Not Reportable 08/10/20 13:12 Hemoglobin C Crystals Not Reportable 08/10/20 13:12 Schistocytes Not Reportable 08/10/20 13:12 Malaria parasites Not Reportable 08/10/20 13:12 Christian Bodies Not Reportable 08/10/20 13:12 Hem Pathologist Commnt No 08/10/20 13:12 PT 16.7 Sec. (12.2-14.9) H 08/10/20 13:12 INR 1.37 (0.87-1.13) H 08/10/20 13:12 APTT 34.7 Sec. (24.2-36.6) 08/10/20 13:12 Sodium 142 mmol/L (137-145) 08/10/20 13:12 Potassium 3.8 mmol/L (3.6-5.0) D 08/10/20 13:12 Chloride 104.4 mmol/L (98-107) 08/10/20 13:12 Carbon Dioxide 22 mmol/L (22-30) 08/10/20 13:12 Anion Gap 19 mmol/L 08/10/20 13:12 BUN 45 mg/dL (7-17) H 08/10/20 13:12 Creatinine 1.4 mg/dL (0.6-1.2) H D 08/10/20 13:12 Estimated GFR 44 ml/min 08/10/20 13:12 BUN/Creatinine Ratio 32 % 08/10/20 13:12 Glucose 93 mg/dL (65-100) 08/10/20 13:12 Lactic Acid 2.30 mmol/L (0.7-2.0) H* 08/10/20 22:46 Calcium 9.8 mg/dL (8.4-10.2) 08/10/20 13:12 Total Bilirubin 0.70 mg/dL (0.1-1.2) 08/10/20 13:12 AST 24 units/L (5-40) 08/10/20 13:12 ALT 13 units/L (7-56) 08/10/20 13:12 Alkaline Phosphatase 68 units/L (35-129) 08/10/20 13:12 Ammonia 36.0 umol/L (25-60) 08/10/20 13:12 Troponin T < 0.010 ng/mL (0.00-0.029) 08/10/20 13:12 Total Protein 6.8 g/dL (6.3-8.2) 08/10/20 13:12 Albumin 3.3 g/dL (3.9-5) L 08/10/20 13:12 Albumin/Globulin Ratio 0.9 % 08/10/20 13:12 Urine Color [place] (Yellow) 08/10/20 Unknown Urine Turbidity Clear (Clear) 08/10/20 Unknown Urine pH 5.0 (5.0-7.0) 08/10/20 Unknown Ur Specific [place] 1.026 (1.003-1.030) 08/10/20 Unknown Urine Protein 30 mg/dl mg/dL (Negative) 08/10/20 Unknown Urine Glucose (UA) Neg mg/dL (Negative) 08/10/20 Unknown Urine Ketones Neg mg/dL (Negative) 08/10/20 Unknown Urine Blood Neg (Negative) 08/10/20 Unknown Urine Nitrite Neg (Negative) 08/10/20 Unknown Urine Bilirubin Sm (Negative) 08/10/20 Unknown Urine Ictotest Negative (Negative) 08/10/20 Unknown Urine Urobilinogen 4.0 mg/dL (<2.0) 08/10/20 Unknown Ur Leukocyte Esterase Neg (Negative) 08/10/20 Unknown Urine WBC (Auto) 4.0 /HPF (0.0-6.0) 08/10/20 Unknown Urine RBC (Auto) 1.0 /HPF (0.0-6.0) 08/10/20 Unknown U Epithel Cells (Auto) 1.0 /HPF (0-13.0) 08/10/20 Unknown Hyaline Casts 1 /LPF 08/10/20 Unknown Urine Mucus Few /HPF 08/10/20 Unknown Plasma/Serum Alcohol < 0.01 % (0-0.07) 08/10/20 13:12 - Imaging and Cardiology Chest x-ray: report reviewed (Bilateral patchy opacities) Imaging and Cardiology: Chest x-ray I few bilateral pulmonary opacities could represent pneumonia Assessment and Plan Advance Directives: Yes (Full code) VTE prophylaxis?: Chemical Plan of care discussed with patient/family: Yes - Patient Problems (1) Acute respiratory failure with hypoxia Current Visit: Yes Status: Acute Plan to address problem: Patient on nasal cannula oxygen Titrate oxygen requirement to oxygen needs Keep the oxygen saturations above 92 (2) Bilateral pneumonia Current Visit: Yes Status: Acute Qualifiers: Pneumonia type: due to unspecified organism Plan to address problem: Possible Covid pneumonia Treat as community-acquired pneumonia IV Zithromax and IV Rocephin IV Decadron Stop antibiotics if procalcitonin is negative in 48 hours (3) COVID-19 virus RNA test result positive at limit of detection Current Visit: Yes Status: Acute (4) Pneumonia due to COVID-19 virus Current Visit: Yes Status: Acute Plan to address problem: Possible Covid related pneumonia (5) CARLITA (acute kidney injury) Current Visit: Yes Status: Acute Plan to address problem: Secondary to vasomotor nephropathy Increase fluid intake (6) Dementia Current Visit: Yes Status: Chronic Qualifiers: Dementia type: vascular dementia Plan to address problem: Supportive care (7) DVT prophylaxis Current Visit: Yes Status: Acute Plan to address problem: On heparin and GI prophylaxis
[2020-08-10] MEDS ORDERED: ONDANSETRON 4 MG/2 ML INJ IV PRN (23:58)
[2020-08-10] MEDS ORDERED: ACETAMINOPHEN 325 MG TAB PO PRN (23:58)
[2020-08-11] MEDS ORDERED: DOCUSATE SODIUM 100 MG CAP PO PRN (00:03)
[2020-08-11] MEDS ORDERED: DEXTROSE 50% IN WATER (25GM) 50 ML SYRINGE IV ONE (04:29)
[2020-08-11 06:27] LABS: Hematocrit 41.7 % (30.3-42.9); Hemoglobin 13.9 gm/dl (10.1-14.3); Mean Corpuscular HGB Conc 33 % (30-34); Mean Corpuscular Volume 83 fl (79-97); Platelet Count 190 K/mm3 (140-440); Red Blood Count 5.03 M/mm3 (3.65-5.03); Red Cell Distribution Width 16.1 % (13.2-15.2)
[2020-08-11 07:08] LABS: Alanine Aminotransferase 16 units/L (7-56); Albumin 3.1 g/dL (3.9-5); BUN/Creatinine Ratio 36; Blood Urea Nitrogen 25 mg/dL (7-17); Calcium 8.9 mg/dL (8.4-10.2); Hemolysis Index 1
[2020-08-11 07:32] LABS: Total Cells Counted 100
[2020-08-11 07:34] LABS: Burr Cells 1+; Poikilocytosis 1+
[2020-08-11 07:35] LABS: Dohle Bodies Rare; Platelet Estimate Consistent w Auto
[2020-08-11] MEDS ORDERED: FAMOTIDINE 20 MG TAB PO SCH (10:00)
[2020-08-11] MEDS ORDERED: POTASSIUM CHLORIDE ER 20 MEQ TAB PO SCH (10:00)
[2020-08-11] MEDS: FAMOTIDINE 10 MG TAB PO SCH ×2 (10:10→21:36)
[2020-08-11] MEDS: dexAMETHasone 4 MG/ML VIAL IV SCH (15:30)
[2020-08-11] MEDS: AZITHROMYCIN/NS 500 MG/250 ML 500 MG/250 ML BAG IV SCH (15:31)
[2020-08-11] MEDS: cefTRIAXone/NS 2 GM/100 ML 2 GM/100 ML BAG IV SCH (15:31)
--- NOTE | 2020-08-11 17:10 | Progress Note ---
Assessment and Plan -- Acute respiratory failure with hypoxia Patient on nasal cannula oxygen Titrate oxygen requirement to oxygen needs Keep the oxygen saturations above 92 -- Bilateral pneumonia due to COVID-19 virus Possible Covid pneumonia Treat as community-acquired pneumonia IV Zithromax and IV Rocephin IV Decadron Stop antibiotics if procalcitonin is negative in 48 hours -- CARLITA (acute kidney injury) Secondary to vasomotor nephropathy Increase fluid intake --Sepsis patient has high lactic acid and high white count consistent with sepsis but no hypotension -- Dementia Supportive care --Severe protein calorie malnutrition will consult dietary -- DVT prophylaxis On heparin and GI prophylaxis Daily clinical course: 08/11/20: Continue COVID-19 protocol, COVID-19 PCR is pending. Gentle IV fluid hydration, follow inflammatory markers. Continue empiric antibiotics for now Subjective Date of service: 08/11/20 Interval history: Patient seen and examined. Medical records and medication list reviewed. No acute event overnight noted by the RN. Patient is restraint and confused Discussed plan of care at bedside with patient's RN. Objective - Exam Narrative Exam: General appearance: Present: no acute distress, mild distress, cachectic and restrained - EENT Eyes: Present: PERRL ENT: Dry oral mucosa - Neck Neck: Present: supple, normal ROM - Respiratory Respiratory effort: normal Respiratory: bilateral: CTA, rhonchi - Cardiovascular Heart rate: 88 Heart Sounds: Present: S1 & S2. Absent: rub, click - Extremities Extremities: pulses symmetrical, No edema Peripheral Pulses: within normal limits - Abdominal General gastrointestinal: Present: soft, non-tender, non-distended, normal bowel sounds Female genitourinary: Present: normal - Integumentary Integumentary: Present: clear, warm, dry - Musculoskeletal Musculoskeletal: Generalized weakness with generalized muscle wasting - Psychiatric Psychiatric: No appropriate mood/affect, no intact judgment & insight - Neurologic Neurologic: moves all extremities - Constitutional Vitals: Vital Signs - 12hr 08/11/20 08/11/20 08/11/20 05:00 05:30 06:00 Pulse Rate 108 H 109 H 118 H Respiratory 29 H 28 H 24 Rate Blood Pressure 131/79 123/76 111/78 O2 Sat by Pulse 97 100 98 Oximetry 08/11/20 08/11/20 06:30 07:00 Pulse Rate 106 H 106 H Respiratory 31 H 21 Rate Blood Pressure 111/78 111/78 O2 Sat by Pulse 95 97 Oximetry - Labs CBC & Chem 7: 08/11/20 05:39 08/11/20 05:39 Labs: Abnormal lab results 08/10/20 08/10/20 08/11/20 Range/Units 21:13 22:46 04:25 RDW (13.2-15.2) % Seg Neuts % (Manual) (40.0-70.0) % Lymphocytes % (Manual) (13.4-35.0) % Lymphocytes # (Manual) (1.2-5.4) K/mm3 Sodium (137-145) mmol/L Potassium (3.6-5.0) mmol/L Chloride (98-107) mmol/L BUN (7-17) mg/dL POC Glucose 48 L (70-105) mg/dL Lactic Acid 2.40 H* 2.30 H* (0.7-2.0) mmol/L Total Protein (6.3-8.2) g/dL Albumin (3.9-5) g/dL 08/11/20 08/11/20 08/11/20 Range/Units 05:39 05:39 05:39 RDW 16.1 H (13.2-15.2) % Seg Neuts % (Manual) 76.0 H (40.0-70.0) % Lymphocytes % (Manual) 7.0 L (13.4-35.0) % Lymphocytes # (Manual) 0.4 L (1.2-5.4) K/mm3 Sodium 146 H (137-145) mmol/L Potassium 3.5 L (3.6-5.0) mmol/L Chloride 109.3 H (98-107) mmol/L BUN 25 H (7-17) mg/dL POC Glucose (70-105) mg/dL Lactic Acid 2.20 H* (0.7-2.0) mmol/L Total Protein 5.6 L (6.3-8.2) g/dL Albumin 3.1 L (3.9-5) g/dL HEART Score - HEART Score Troponin: Troponin T < 0.010 ng/mL (0.00-0.029) 08/10/20 13:12
[2020-08-11] MEDS: D5W/0.45% NACL 1,000 ML IV SCH (18:14)
[2020-08-11] MEDS: HYDROmorphone 1 MG/1 ML INJ IV PRN (19:13)
[2020-08-11] MEDS ORDERED: HYDROGEN PEROXIDE 118 ML SOLUTION TP ONE (22:40)
[2020-08-12] MEDS: FAMOTIDINE 10 MG TAB PO SCH (11:37)
[2020-08-12] MEDS: dexAMETHasone 4 MG/ML VIAL IV SCH (11:37)
--- NOTE | 2020-08-12 13:30 | Progress Note ---
Assessment and Plan -- Acute respiratory failure with hypoxia Patient on nasal cannula oxygen Titrate oxygen requirement to oxygen needs Keep the oxygen saturations above 92 -- Bilateral pneumonia due to COVID-19 virus Possible Covid pneumonia Treat as community-acquired pneumonia IV Zithromax and IV Rocephin IV Decadron Stop antibiotics if procalcitonin is negative in 48 hours -- CARLITA (acute kidney injury) Secondary to vasomotor nephropathy Increase fluid intake --Sepsis patient has high lactic acid and high white count consistent with sepsis but no hypotension -- Dementia Supportive care --Severe protein calorie malnutrition Consulted dietary -- DVT prophylaxis On heparin and GI prophylaxis Daily clinical course: 08/11/20: Continue COVID-19 protocol, COVID-19 PCR is pending. Gentle IV fluid hydration, follow inflammatory markers. Continue empiric antibiotics for now 08/12: Pending Covid test, patient remains on 2 to 3 L nasal cannula oxygen. Continue empiric antibiotics for now, follow clinically. Monitor inflammatory markers. Subjective Date of service: 08/12/20 Interval history: Patient seen and examined. Medical records and medication list reviewed. No acute event overnight noted by the RN. Patient is pleasantly confused Discussed plan of care at bedside with patient's RN. Objective - Exam Narrative Exam: General appearance: Present: no acute distress, mild distress, cachectic - EENT Eyes: Present: PERRL ENT: Dry oral mucosa - Neck Neck: Present: supple, normal ROM - Respiratory Respiratory effort: normal Respiratory: bilateral: CTA, rhonchi - Cardiovascular Heart rate: 88 Heart Sounds: Present: S1 & S2. Absent: rub, click - Extremities Extremities: pulses symmetrical, No edema Peripheral Pulses: within normal limits - Abdominal General gastrointestinal: Present: soft, non-tender, non-distended, normal bowel sounds Female genitourinary: Present: normal - Integumentary Integumentary: Present: clear, warm, dry - Musculoskeletal Musculoskeletal: Generalized weakness with generalized muscle wasting - Psychiatric Psychiatric: No appropriate mood/affect, no intact judgment & insight - Neurologic Neurologic: moves all extremities - Constitutional Vitals: Vital Signs - 12hr 08/12/20 05:28 Temperature 98.4 F Pulse Rate 98 H Respiratory 16 Rate Blood Pressure 140/84 [Left] O2 Sat by Pulse 98 Oximetry - Labs CBC & Chem 7: 08/11/20 05:39 08/11/20 05:39 Labs: Abnormal lab results 04/27/21 04/28/21 04/28/21 Range/Units 12:09 08:28 12:08 POC Glucose 59 L 108 H 107 H (70-105) mg/dL HEART Score - HEART Score Troponin: Troponin T < 0.010 ng/mL (0.00-0.029) 08/10/20 13:12
[2020-08-12 15:05] LABS: Blood Urea Nitrogen 22 mg/dL (7-17); Calcium 8.8 mg/dL (8.4-10.2); Hemolysis Index 5
[2020-08-12] MEDS: AZITHROMYCIN/NS 500 MG/250 ML 500 MG/250 ML BAG IV SCH (15:15)
[2020-08-12] MEDS: cefTRIAXone/NS 2 GM/100 ML 2 GM/100 ML BAG IV SCH (15:15)
[2020-08-12 15:20] LABS: BUN/Creatinine Ratio 31
[2020-08-13] MEDS: HYDROmorphone 1 MG/1 ML INJ IV PRN (00:03)
[2020-08-13] MEDS: FAMOTIDINE 10 MG TAB PO SCH ×3 (00:04→21:34)
[2020-08-13] MEDS: D5W/0.45% NACL 1,000 ML IV SCH ×2 (00:04→16:42)
[2020-08-13] MEDS: dexAMETHasone 4 MG/ML VIAL IV SCH (09:49)
[2020-08-13 10:06] LABS: Hematocrit 37.7 % (30.3-42.9); Hemoglobin 12.5 gm/dl (10.1-14.3); Mean Corpuscular HGB Conc 33 % (30-34); Mean Corpuscular Volume 81 fl (79-97); Platelet Count 168 K/mm3 (140-440); Red Blood Count 4.63 M/mm3 (3.65-5.03)
[2020-08-13 10:31] LABS: Blood Urea Nitrogen 16 mg/dL (7-17); Calcium 8.5 mg/dL (8.4-10.2); Hemolysis Index 3
[2020-08-13 10:38] LABS: BUN/Creatinine Ratio 32
[2020-08-13] MEDS ORDERED: POTASSIUM CHLORIDE ER 20 MEQ TAB PO NR (11:14)
[2020-08-13] MEDS: POTASSIUM CHLORIDE 10 MEQ 10 MEQ/100 ML BAG IV SCH ×3 (12:10→16:43)
[2020-08-13] MEDS: DEXAMETHASONE 4 MG TAB PO SCH (12:32)
[2020-08-13 14:47] LABS: Total Cells Counted 100
[2020-08-13 14:49] LABS: Burr Cells Rare; Platelet Estimate Consistent w Auto
--- NOTE | 2020-08-13 16:02 | Progress Note ---
Assessment and Plan -- Acute respiratory failure with hypoxia Patient on nasal cannula oxygen Titrate oxygen requirement to oxygen needs Keep the oxygen saturations above 92 -- Bilateral pneumonia likely community-acquired COVID-19 test was negative IV Zithromax and IV Rocephin Discontinue steroid --COVID-19 PUI, ruled out with a negative test -- CARLITA (acute kidney injury) Secondary to vasomotor nephropathy Increase fluid intake --Sepsis patient has high lactic acid and high white count consistent with sepsis but no hypotension -- Dementia Supportive care --Severe protein calorie malnutrition Consulted dietary --Hypokalemia and hypophosphatemia, replete electrolytes follow BMP -- DVT prophylaxis On heparin and GI prophylaxis Daily clinical course: 08/11/20: Continue COVID-19 protocol, COVID-19 PCR is pending. Gentle IV fluid hydration, follow inflammatory markers. Continue empiric antibiotics for now 08/12: Pending Covid test, patient remains on 2 to 3 L nasal cannula oxygen. Continue empiric antibiotics for now, follow clinically. Monitor inflammatory markers. 08/13: Negative for COVID-19. Continue empiric antibiotic. Potassium today 2.9 with a low phosphate. Replete electrolyte. Discussed with the patient's son by phone. Consult dietary and speech therapy. If patient continues to improve clinically and electrolytes if stable possible discharge back to [facility] tomorrow Subjective Date of service: 08/13/20 Interval history: Patient seen and examined. Medical records and medication list reviewed. No acute event overnight noted by the RN. Patient is pleasantly confused Discussed plan of care at bedside with patient's RN and with patient's son by phone. Objective - Exam Narrative Exam: General appearance: Present: no acute distress, mild distress, cachectic - EENT Eyes: Present: PERRL ENT: Dry oral mucosa - Neck Neck: Present: supple, normal ROM - Respiratory Respiratory effort: normal Respiratory: bilateral: CTA, rhonchi - Cardiovascular Heart rate: 88 Heart Sounds: Present: S1 & S2. Absent: rub, click - Extremities Extremities: pulses symmetrical, No edema Peripheral Pulses: within normal limits - Abdominal General gastrointestinal: Present: soft, non-tender, non-distended, normal bowel sounds Female genitourinary: Present: normal - Integumentary Integumentary: Present: clear, warm, dry - Musculoskeletal Musculoskeletal: Generalized weakness with generalized muscle wasting - Psychiatric Psychiatric: No appropriate mood/affect, no intact judgment & insight - Neurologic Neurologic: moves all extremities - Constitutional Vitals: Vital Signs - 12hr 08/13/20 08/13/20 08/13/20 06:38 10:00 11:42 Temperature 98.5 F 98.2 F Pulse Rate 94 H 94 H Respiratory 18 24 18 Rate Blood Pressure 144/88 153/99 O2 Sat by Pulse 93 94 97 Oximetry - Labs CBC & Chem 7: 08/13/20 08:24 08/13/20 08:24 Labs: Abnormal lab results 08/13/20 08/13/20 08/13/20 Range/Units 08:24 08:24 08:24 MCH 27 L (28-32) pg RDW 16.0 H (13.2-15.2) % Seg Neuts % (Manual) 81.0 H (40.0-70.0) % Lymphocytes # (Manual) 1.1 L (1.2-5.4) K/mm3 Sodium 146 H (137-145) mmol/L Potassium 2.9 L* (3.6-5.0) mmol/L Creatinine 0.5 L (0.6-1.2) mg/dL POC Glucose (70-105) mg/dL Phosphorus 2.00 L (2.5-4.5) mg/dL 08/13/20 Range/Units 11:40 MCH (28-32) pg RDW (13.2-15.2) % Seg Neuts % (Manual) (40.0-70.0) % Lymphocytes # (Manual) (1.2-5.4) K/mm3 Sodium (137-145) mmol/L Potassium (3.6-5.0) mmol/L Creatinine (0.6-1.2) mg/dL POC Glucose 115 H (70-105) mg/dL Phosphorus (2.5-4.5) mg/dL HEART Score - HEART Score Troponin: Troponin T < 0.010 ng/mL (0.00-0.029) 08/10/20 13:12
[2020-08-13] MEDS ORDERED: POTASSIUM PHOSPHATE 30 MMOL in SODIUM CHLORIDE 0.9% 500 ML 500 ML IV ONE (16:59)
[2020-08-13] MEDS: cefTRIAXone/NS 2 GM/100 ML 2 GM/100 ML BAG IV SCH (17:14)
[2020-08-13] MEDS: AZITHROMYCIN/NS 500 MG/250 ML 500 MG/250 ML BAG IV SCH (17:39)
[2020-08-14 08:30] LABS: Blood Urea Nitrogen 12 mg/dL (7-17); Calcium 8.3 mg/dL (8.4-10.2); Hemolysis Index 2
[2020-08-14 08:41] LABS: BUN/Creatinine Ratio 24
[2020-08-14] MEDS: DEXAMETHASONE 4 MG TAB PO SCH (09:48)
[2020-08-14] MEDS: FAMOTIDINE 10 MG TAB PO SCH ×2 (09:49→23:57)
[2020-08-14] MEDS ORDERED: POTASSIUM PHOSPHATE 45 MMOL in SODIUM CHLORIDE 0.9% 500 ML 500 ML IV ONE (10:30)
[2020-08-14] MEDS: cefTRIAXone/NS 2 GM/100 ML 2 GM/100 ML BAG IV SCH (13:34)
[2020-08-14] MEDS: AZITHROMYCIN/NS 500 MG/250 ML 500 MG/250 ML BAG IV SCH (13:41)
--- NOTE | 2020-08-14 14:12 | Progress Note ---
Assessment and Plan -- Acute respiratory failure with hypoxia Patient on nasal cannula oxygen Titrate oxygen requirement to oxygen needs Keep the oxygen saturations above 92 -- Bilateral pneumonia likely community-acquired COVID-19 test was negative IV Zithromax and IV Rocephin Discontinue steroid --COVID-19 PUI, ruled out with a negative test -- CARLITA (acute kidney injury) Secondary to vasomotor nephropathy Increase fluid intake --Sepsis patient has high lactic acid and high white count consistent with sepsis but no hypotension -- Dementia Supportive care --Severe protein calorie malnutrition Consulted dietary --Hypokalemia and hypophosphatemia, replete electrolytes follow BMP -- DVT prophylaxis On heparin and GI prophylaxis Daily clinical course: 08/11/20: Continue COVID-19 protocol, COVID-19 PCR is pending. Gentle IV fluid hydration, follow inflammatory markers. Continue empiric antibiotics for now 08/12: Pending Covid test, patient remains on 2 to 3 L nasal cannula oxygen. Continue empiric antibiotics for now, follow clinically. Monitor inflammatory markers. 08/13: Negative for COVID-19. Continue empiric antibiotic. Potassium today 2.9 with a low phosphate. Replete electrolyte. Discussed with the patient's son by phone. Consult dietary and speech therapy. If patient continues to improve clinically and electrolytes if stable possible discharge back to [facility] tomorrow 08/14: Potassium level and phosphorus level remains low today, continue to replete. Repeat potassium and phosphorus level tomorrow. Consulted physical therapy await for recommendation. Continue pured diet per speech recommendation Subjective Date of service: 08/14/20 Interval history: Patient seen and examined. Medical records and medication list reviewed. No acute event overnight noted by the RN. Patient is pleasantly confused Discussed plan of care at bedside with patient's RN and with patient's son by phone. Objective - Constitutional Vitals: Vital Signs - 12hr 08/14/20 05:02 Temperature 98.3 F Pulse Rate 93 H Respiratory 20 Rate Blood Pressure 157/94 O2 Sat by Pulse 100 Oximetry - Labs CBC & Chem 7: 08/13/20 08:24 08/14/20 07:02 Labs: Abnormal lab results 08/13/20 08/13/20 08/13/20 Range/Units 08:24 08:24 17:39 Seg Neuts % (Manual) 81.0 H (40.0-70.0) % Lymphocytes # (Manual) 1.1 L (1.2-5.4) K/mm3 Sodium (137-145) mmol/L Potassium (3.6-5.0) mmol/L Creatinine (0.6-1.2) mg/dL Glucose (65-100) mg/dL POC Glucose 183 H (70-105) mg/dL Calcium (8.4-10.2) mg/dL Phosphorus 2.00 L (2.5-4.5) mg/dL 08/13/20 08/14/20 08/14/20 Range/Units 22:10 07:02 07:39 Seg Neuts % (Manual) (40.0-70.0) % Lymphocytes # (Manual) (1.2-5.4) K/mm3 Sodium 136 L D (137-145) mmol/L Potassium 3.2 L (3.6-5.0) mmol/L Creatinine 0.5 L (0.6-1.2) mg/dL Glucose 106 H (65-100) mg/dL POC Glucose 128 H 106 H (70-105) mg/dL Calcium 8.3 L (8.4-10.2) mg/dL Phosphorus 2.20 L (2.5-4.5) mg/dL HEART Score - HEART Score Troponin: Troponin T < 0.010 ng/mL (0.00-0.029) 08/10/20 13:12
[2020-08-14] MEDS: oxyCODONE /ACETAMINOPHEN 5-325MG TAB PO PRN (16:46)
[2020-08-15 08:32] LABS: Basophils % (Auto) 0.2 % (0.0-1.8); Hematocrit 39.7 % (30.3-42.9); Hemoglobin 13.4 gm/dl (10.1-14.3); Lymphocytes # (Auto) 1.2 K/mm3 (1.2-5.4); Lymphocytes % (Auto) 8.8 % (13.4-35.0); Mean Corpuscular HGB Conc 34 % (30-34); Mean Corpuscular Volume 81 fl (79-97); Monocytes # (Auto) 1.2 K/mm3 (0.0-0.8); Monocytes % (Auto) 8.6 % (0.0-7.3); Platelet Count 103 K/mm3 (140-440); Red Cell Distribution Width 15.5 % (13.2-15.2)
[2020-08-15 08:44] LABS: Blood Urea Nitrogen 13 mg/dL (7-17); Calcium 8.3 mg/dL (8.4-10.2); Hemolysis Index 59
[2020-08-15 08:48] LABS: BUN/Creatinine Ratio 33
[2020-08-15] MEDS: FAMOTIDINE 10 MG TAB PO SCH ×2 (09:16→21:00)
--- NOTE | 2020-08-15 14:47 | Discharge Summary ---
Providers - Providers Date of Admission: 08/10/20 15:33 Date of discharge: 08/16/20 Attending physician: MATHEUS RODRIGUEZ 08/13/20 11:38 Consult to Dietitian/Nutrition [CONS] Routine Physician Instructions: Reason For Exam: Reason for Consult: Poor oral intake Speech Therapy Evaluation and Treat [CONS] Routine Reason For Exam: aspiration 08/13/20 11:46 Physical Therapy Evaluation and Treat [CONS] Routine Comment: Reason For Exam: Debility Primary care physician: MICHELINE DE JESUS Hospitalization Condition: Fair Pertinent studies: Head CT CXR Hospital course: This is a 80-year-old -[place] female with a history of dementia lives in a personal fpc sent to ER on 08/10/2020 with altered mental status. In the ER patient noted to be be hypoxic with chest x-ray suggesting bilateral patchy opacities, elevated lactic acid, high white count, and creatinine of 1.4. Patient was placed on IV fluid hydration, empiric antibiotics. CT head showed age-related involutional changes of parenchymal volume loss and microvascular ischemia, Ruled out for COVID-19. She then noted with hyponatremia and hypokalemia hypophosphatemia. Electrolytes were adjusted. Speech therapy recommended pured diet. Patient family was called and notified with all updates. Patient improved clinically and was tolerating pured diet. PT was consulted but patient was unable to follow instruction because of severe underlying dementia. Patient was then discharged back to personal fpc with home health PT in stable condition and with home O2. Daily clinical course: 08/11/20: Continue COVID-19 protocol, COVID-19 PCR is pending. Gentle IV fluid hydration, follow inflammatory markers. Continue empiric antibiotics for now for underlying pneumonia. 08/12: Pending Covid test, patient remains on 2 to 3 L nasal cannula oxygen. Continue empiric antibiotics for now, follow clinically. Monitor inflammatory markers. 08/13: Negative for COVID-19. Continue empiric antibiotic. Potassium today 2.9 with a low phosphate. Replete electrolyte. Discussed with the patient's son by phone. Consult dietary and speech therapy. If patient continues to improve clinically and electrolytes if stable possible discharge back to skilled nursing tomorrow 08/14: Potassium level and phosphorus level remains low today, continue to replete. Repeat potassium and phosphorus level tomorrow. Consulted physical therapy await for recommendation. Continue pured diet per speech recommend ation 08/15; 08/15: Electrolytes improved. Patient completed antibiotics for pneumonia and left sphenoidal sinusitis. Further assessment shows patient O2 sat drops to 87% on room air. Patient will need home O2 on discharge. Case management notified. 08/16: PATIENT clinically stable, tolerating diet. Electrolytes improved. Completed antibiotics for community-acquired pneumonia. patient will be discharged To personal fpc with home health PT and home O2. Will be discharged home with phosphate supplements. Need to repeat BMP with phosphate in 1 week. Disposition: [id number] HOME UNDER HOME TH Final Discharge Diagnosis (Prints w/discharge instructions): Acute hypoxic respiratory failure with hypoxia, bilateral pneumonia likely community-acquired, Covid PUI ruled out, CARLITA with vasomotor nephropathy resolved, sepsis due to pneumonia, dementia, severe protein calorie malnutrition, hypokalemia and hypophosphatemia -repleted, hypernatremia resolved, mild hyponatremia. Left sphenoidal sinusitis -treated with abx. Time spent for discharge: 34 minutes Core Measure Documentation - Palliative Care Palliative Care/ Comfort Measures: Not Applicable - Core Measures Any of the following diagnoses?: history only Exam - Physical Exam Narrative exam: General appearance: Present: no acute distress, mild distress, cachectic - EENT Eyes: Present: PERRL ENT: Dry oral mucosa - Neck Neck: Present: supple, normal ROM - Respiratory Respiratory effort: normal Respiratory: bilateral: CTA, rhonchi - Cardiovascular Heart rate: 88 Heart Sounds: Present: S1 & S2. Absent: rub, click - Extremities Extremities: pulses symmetrical, No edema Peripheral Pulses: within normal limits - Abdominal General gastrointestinal: Present: soft, non-tender, non-distended, normal bowel sounds Female genitourinary: Present: normal - Integumentary Integumentary: Present: clear, warm, dry - Musculoskeletal Musculoskeletal: Generalized weakness with generalized muscle wasting - Psychiatric Psychiatric: No appropriate mood/affect, no intact judgment & insight - Neurologic Neurologic: moves all extremities - Constitutional Vitals: Temp Pulse Resp BP Pulse Ox 97.8 F 104 H 20 157/107 92 08/15/20 04:17 08/15/20 04:17 08/15/20 10:00 08/15/20 04:17 08/15/20 04:17 Plan Activity: fall precautions Weight Bearing Status: Weight Bear as Tolerated Diet: other (Pured diet) Special Instructions: physical therapy, home oxygen via (n/c), home health RN Durable Medical Equipment Needed Upon Discharge: Oxygen Follow up with: MICHELINE DE JESUS MD [Primary Care Provider] - 3-5 Days Prescriptions: Aspirin EC [Halfprin EC] 81 mg PO QDAY #30 tablet. Phosphorus #1 [K-Phos Neutral] 250 mg PO BID #10 tablet
[2020-08-15] MEDS: oxyCODONE /ACETAMINOPHEN 5-325MG TAB PO PRN (20:44)
[2020-08-15] MEDS: K-PHOS NEUTRAL 250 MG TAB PO SCH (21:00)
[2020-08-16] MEDS: FAMOTIDINE 10 MG TAB PO SCH (09:03)
[2020-08-16] MEDS: K-PHOS NEUTRAL 250 MG TAB PO SCH (09:03)
--- NOTE | 2020-08-16 10:28 | Progress Note ---
Assessment and Plan -- Acute respiratory failure with hypoxia Likely due to underlying pneumonia Patient on nasal cannula oxygen Titrate oxygen requirement to oxygen needs Keep the oxygen saturations above 92 -- Bilateral pneumonia likely community-acquired COVID-19 test was negative IV Zithromax and IV Rocephin Discontinue steroid --COVID-19 PUI, ruled out with a negative test -- CARLITA (acute kidney injury), resolved with IV fluid Secondary to vasomotor nephropathy --Sepsis -due to pneumonia, treated with antibiotics patient has high lactic acid and high white count consistent with sepsis but no hypotension -- Dementia Supportive care --Severe protein calorie malnutrition Consulted dietary --Hypokalemia and hypophosphatemia, replete electrolytes as needed and follow BMP -- DVT prophylaxis On heparin and GI prophylaxis Daily clinical course: 08/11/20: Continue COVID-19 protocol, COVID-19 PCR is pending. Gentle IV fluid hydration, follow inflammatory markers. Continue empiric antibiotics for now 08/12: Pending Covid test, patient remains on 2 to 3 L nasal cannula oxygen. Continue empiric antibiotics for now, follow clinically. Monitor inflammatory markers. 08/13: Negative for COVID-19. Continue empiric antibiotic. Potassium today 2.9 with a low phosphate. Replete electrolyte. Discussed with the patient's son by phone. Consult dietary and speech therapy. If patient continues to improve clinically and electrolytes if stable possible discharge back to residential tomorrow 08/14: Potassium level and phosphorus level remains low today, continue to replete. Repeat potassium and phosphorus level tomorrow. Consulted physical therapy await for recommendation. Continue pured diet per speech recom mendation 08/15: Electrolytes improved. Patient completed antibiotics for pneumonia. Further assessment shows patient O2 sat drops to 87% on room air. Patient will need home O2 on discharge. Case management notified. Subjective Date of service: 08/15/20 Interval history: Patient seen and examined. Medical records and medication list reviewed. No acute event overnight noted by the RN. Patient is pleasantly confused Discussed plan of care at bedside with patient's RN Patient noted to be 87% on room air -need home O2 on discharge Objective - Exam Narrative Exam: General appearance: Present: no acute distress, mild distress, cachectic - EENT Eyes: Present: PERRL ENT: Dry oral mucosa - Neck Neck: Present: supple, normal ROM - Respiratory Respiratory effort: normal Respiratory: bilateral: CTA, rhonchi - Cardiovascular Heart rate: 88 Heart Sounds: Present: S1 & S2. Absent: rub, click - Extremities Extremities: pulses symmetrical, No edema Peripheral Pulses: within normal limits - Abdominal General gastrointestinal: Present: soft, non-tender, non-distended, normal bowel sounds Female genitourinary: Present: normal - Integumentary Integumentary: Present: clear, warm, dry - Musculoskeletal Musculoskeletal: Generalized weakness with generalized muscle wasting - Psychiatric Psychiatric: No appropriate mood/affect, no intact judgment & insight - Neurologic Neurologic: moves all extremities - Constitutional Vitals: Vital Signs - 12hr 08/16/20 08/16/20 00:16 05:16 Temperature 98.4 F 98.4 F Pulse Rate 78 90 Respiratory 17 18 Rate Blood Pressure 135/75 152/101 O2 Sat by Pulse 95 99 Oximetry - Labs CBC & Chem 7: 08/15/20 07:23 08/15/20 07:23 Labs: Abnormal lab results 08/15/20 Range/Units 21:48 POC Glucose 153 H (70-105) mg/dL HEART Score - HEART Score Troponin: Troponin T < 0.010 ng/mL (0.00-0.029) 08/10/20 13:12
[2020-08-16 11:58] VITALS: BP 111/76
== END 2020-08-16 15:22 | disposition home health service (06) | DRG 871 ==
LOC: ED 11:30 → 3A 15:33
PROVIDERS: ADMIT Internal Medicine; ATTEND Internal Medicine
DX: A41.9 Sepsis, unspecified organism (principal); N17.0 Acute kidney failure with tubular necrosis; J96.01 Acute respiratory failure with hypoxia; E43 Unspecified severe protein-calorie malnutrition; J18.9 Pneumonia, unspecified organism; E87.0 Hyperosmolality and hypernatremia; E87.1 Hypo-osmolality and hyponatremia; Z20.822 Contact with and (suspected) exposure to COVID-19; E87.6 Hypokalemia; E83.39 Other disorders of phosphorus metabolism; K59.00 Constipation, unspecified; J32.3 Chronic sphenoidal sinusitis; F03.90 Unspecified dementia, unspecified severity, without behavioral disturbance, psychotic disturbance, mood disturbance, and anxiety; Z68.20 Body mass index [BMI] 20.0-20.9, adult; Z79.899 Other long term (current) drug therapy; Z79.891 Long term (current) use of opiate analgesic; Z79.01 Long term (current) use of anticoagulants
CPT/HCPCS: 36415; 70450; 71045; 74022; 80048; 80053; 80320; 81001; 82140; 82962; 83036; 83735; 84100; 84132; 84443; 84484; 85007; 85025; 85610; 85730; 87086; 93005; 96361; 96365; 96367; 96368; 96375; 96376; G0378; G0480; J0456; J0696; J1100; J1170; J3480; J7030; J7040; J8540; U0003

== ENCOUNTER 2022-01-09 13:06 | Observation (INO) | payer MEDICARE, OTHER ==
--- NOTE | 2022-01-09 13:55 | Emergency Department Report ---
ED Altered Mental Status HPI - General Chief Complaint: Altered Mental Status Stated Complaint: AMS/RESP DISTRESS Time Seen by Provider: 01/09/22 13:49 Source: EMS Mode of arrival: Stretcher Limitations: Altered Mental Status, Physical Limitation - History of Present Illness Initial Comments: 81-year-old -Filipino female with multiple medical problems, sent from assisted living, because patient had decreased responsiveness this afternoon. There is no history of trauma. Patient aphasic and does not speak. Patient is DNR however son doubts that he wants everything done. MD Complaint: decreased responsiveness -: unknown Severity: moderate Consistency of Symptoms: constant Context: history of similar presen Associated Symptoms: denies other symptoms Treatments Prior to Arrival: oxygen - Related Data Previous Rx's Medication Instructions Recorded Last Taken Type Docusate Sodium [Colace CAP] 100 mg PO QDAY PRN #15 capsule 08/08/20 Unknown Rx Aspirin EC [Halfprin EC] 81 mg PO QDAY #30 tablet. 08/15/20 Unknown Rx Phosphorus #1 [K-Phos Neutral] 250 mg PO BID #10 tablet 08/15/20 Unknown Rx Allergies Allergy/AdvReac Type Severity Reaction Status Date / Time No Known Allergies Allergy Verified 01/09/22 17:38 ED Review of Systems ROS: Stated complaint: AMS/RESP DISTRESS Other details as noted in HPI Constitutional: denies: chills, fever Eyes: denies: eye pain, eye discharge, vision change ENT: denies: ear pain, throat pain Respiratory: denies: cough, shortness of breath, wheezing Cardiovascular: denies: chest pain, palpitations Endocrine: no symptoms reported Gastrointestinal: denies: abdominal pain, nausea, diarrhea Genitourinary: denies: urgency, dysuria, discharge Musculoskeletal: denies: back pain, joint swelling, arthralgia Skin: denies: rash, lesions Neurological: other (Decreased responsiveness). denies: headache, weakness, paresthesias Psychiatric: denies: anxiety, depression Hematological/Lymphatic: denies: easy bleeding, easy bruising ED Past Medical Hx - Past Medical History Hx Hypertension: Yes Hx Dementia: Yes - Surgical History Additional Surgical History: CONSTIPATION - Social History Smoking Status: Never Smoker - Medications Home Medications: Home Medications Medication Instructions Recorded Confirmed Last Taken Type Docusate Sodium [Colace CAP] 100 mg PO QDAY PRN #15 capsule 08/08/20 08/11/20 Unknown Rx Aspirin EC [Halfprin EC] 81 mg PO QDAY #30 tablet. 08/15/20 Unknown Rx Phosphorus #1 [K-Phos Neutral] 250 mg PO BID #10 tablet 08/15/20 Unknown Rx ED Physical Exam - General Limitations: Altered Mental Status, Physical Limitation General appearance: lethargic - Head Head exam: Present: atraumatic, normocephalic - Eye Eye exam: Present: normal appearance - ENT ENT exam: Present: mucous membranes dry - Neck Neck exam: Present: normal inspection - Respiratory Respiratory exam: Present: normal lung sounds bilaterally. Absent: respiratory distress - Cardiovascular Cardiovascular Exam: Present: regular rate, normal rhythm. Absent: systolic murmur, diastolic murmur, rubs, gallop - GI/Abdominal GI/Abdominal exam: Present: soft, normal bowel sounds - Extremities Exam Extremities exam: Present: normal inspection - Back Exam Back exam: Present: normal inspection - Neurological Exam Neurological exam: Present: alert, altered - Skin Skin exam: Present: warm, dry, intact, normal color. Absent: rash ED Course Vital Signs 01/09/22 01/09/22 01/09/22 13:11 13:16 13:30 Temperature Pulse Rate 51 L 51 L 51 L Respiratory 12 14 12 Rate Blood Pressure 157/85 157/92 O2 Sat by Pulse 100 Oximetry 01/09/22 01/09/22 01/09/22 13:46 14:00 14:16 Temperature Pulse Rate 52 L 52 L 85 Respiratory 12 13 32 H Rate Blood Pressure 161/75 156/80 144/77 O2 Sat by Pulse 100 100 61 L Oximetry 01/09/22 01/09/22 01/09/22 14:30 14:42 14:46 Temperature 98.9 F Pulse Rate 56 L 57 L Respiratory 20 18 Rate Blood Pressure 145/74 158/77 O2 Sat by Pulse 74 L 55 L Oximetry 01/09/22 15:00 Temperature Pulse Rate 65 Respiratory 14 Rate Blood Pressure 158/71 O2 Sat by Pulse 100 Oximetry - Lab Data Result diagrams: 01/09/22 14:24 01/09/22 14:24 Lab Results 01/09/22 01/09/22 Range/Units 14:24 14:24 WBC 4.0 L (4.5-11.0) K/mm3 RBC 5.55 H (3.65-5.03) M/mm3 Hgb 13.2 (10.1-14.3) gm/dl Hct 41.0 (30.3-42.9) % MCV 74 L (79-97) fl MCH 24 L (28-32) pg MCHC 32 (30-34) % RDW 20.7 H (13.2-15.2) % Plt Count 293 (140-440) K/mm3 Lymph % (Auto) 19.8 (13.4-35.0) % [place] % (Auto) 4.4 (0.0-7.3) % Eos % (Auto) 0.1 (0.0-4.3) % Baso % (Auto) 0.3 (0.0-1.8) % Lymph # (Auto) 0.8 L (1.2-5.4) K/mm3 [place] # (Auto) 0.2 (0.0-0.8) K/mm3 Eos # (Auto) 0.0 (0.0-0.4) K/mm3 Baso # (Auto) 0.0 (0.0-0.1) K/mm3 Seg Neutrophils % 75.4 H (40.0-70.0) % Seg Neutrophils # 3.0 (1.8-7.7) K/mm3 Sodium 140 (137-145) mmol/L Potassium 4.6 (3.6-5.0) mmol/L Chloride 104.0 (98-107) mmol/L Carbon Dioxide 22 (22-30) mmol/L Anion Gap 19 mmol/L BUN 10 (7-17) mg/dL Creatinine 0.5 L (0.6-1.2) mg/dL Estimated GFR > 60 ml/min BUN/Creatinine Ratio 20 % Glucose 84 (65-100) mg/dL Calcium 9.2 (8.4-10.2) mg/dL Total Bilirubin 0.30 (0.1-1.2) mg/dL AST 24 (5-40) units/L ALT 15 (7-56) units/L Alkaline Phosphatase 88 (35-129) units/L Total Protein 6.6 (6.3-8.2) g/dL Albumin 3.6 L (3.9-5) g/dL Albumin/Globulin Ratio 1.2 % Critical care attestation.: If time is entered above; I have spent that time in minutes in the direct care of this critically ill patient, excluding procedure time. ED Disposition Clinical Impression: Altered mental status, Hypoxia Disposition: 09 ADMITTED INPATIENT Is pt being admited?: Yes Does the pt Need Aspirin: No Condition: Serious
[2022-01-09] MEDS ORDERED: SODIUM CHLORIDE 0.9% 1000 ML 1,000 ML IV ONE ×2 (13:58→19:29)
--- NOTE | 2022-01-09 14:41 | XRay Report ---
CHEST 1 VIEW 01/09/2022 2:06 PM INDICATION / CLINICAL INFORMATION: sob. COMPARISON: July 2020 FINDINGS: Limited frontal view with patient rotation to the right. SUPPORT DEVICES: None. HEART / MEDIASTINUM: Stable. LUNGS / PLEURA: Patchy pulmonary opacities seen previously favor resolved pneumonia and/or edema. No pneumothorax. ADDITIONAL FINDINGS: No significant additional findings. IMPRESSION: 1. No focal acute cardiopulmonary process demonstrated by limited AP radiograph. Signer Name: Dieudonne Echevarria MD Signed: 01/09/2022 2:37 PM Workstation Name: [id number]
[2022-01-09 14:52] LABS: Alanine Aminotransferase 15 units/L (7-56); Albumin 3.6 g/dL (3.9-5); BUN/Creatinine Ratio 20; Blood Urea Nitrogen 10 mg/dL (7-17); Calcium 9.2 mg/dL (8.4-10.2); Hemolysis Index 56
[2022-01-09 14:59] LABS: Basophils % (Auto) 0.3 % (0.0-1.8); Eosinophils % (Auto) 0.1 % (0.0-4.3); Hemoglobin 13.2 gm/dl (10.1-14.3); Lymphocytes # (Auto) 0.8 K/mm3 (1.2-5.4); Lymphocytes % (Auto) 19.8 % (13.4-35.0); Mean Corpuscular HGB Conc 32 % (30-34); Mean Corpuscular Volume 74 fl (79-97); Monocytes # (Auto) 0.2 K/mm3 (0.0-0.8); Monocytes % (Auto) 4.4 % (0.0-7.3); Platelet Count 293 K/mm3 (140-440); Red Blood Count 5.55 M/mm3 (3.65-5.03)
[2022-01-09 15:34] LABS: Red Cell Distribution Width 20.7 % (13.2-15.2)
--- NOTE | 2022-01-09 16:38 | Cat Scan Report ---
CT HEAD WITHOUT CONTRAST INDICATION / CLINICAL INFORMATION: plummer. TECHNIQUE: All CT scans at this location are performed using CT dose reduction for ALARA by means of automated e xposure control. COMPARISON: Head CT 08/10/2020 FINDINGS: LIMITATIONS: Patient appears to have exaggerated fixed thoracic kyphosis. Patient is unable to lie fl at. Scanning the patient's had required using a large [id number] with body technique. These issues are limiting factors in this examination. HEMORRHAGE: No evidence of intracranial hemorrhage or extra-axial fluid collection. EXTRA-AXIAL SPACES: Cortical sulci and sylvian fissures are enlarged reflecting a degree of parenchym al volume loss which is within normal limits for the patient's age of 81 years. Basilar cisterns have an unremarkable appearance. VENTRICULAR SYSTEM: The third and lateral ventricles are enlarged reflecting presence of age related parenchymal volume loss. There is marked enlargement of the temporal horns of lateral ventricles cons istent with presence of disproportionate temporal lobe atrophy. CEREBRAL PARENCHYMA: Periventricular and deep white matter lucency is observed. This is probably seco ndary to microvascular ischemic change. There is no indication of recent infarction. No areas of ence phalomalacia are identified. MIDLINE SHIFT OR HERNIATION: There is no mass effect. CEREBELLUM / BRAINSTEM: Brainstem has an unremarkable appearance. Age related cerebellar atrophy is n oted. MIDLINE STRUCTURES:Pituitary gland has an unremarkable appearance. No abnormalities are seen in the p ineal region. INTRACRANIAL VESSELS:Calcified atherosclerotic plaque is present along the course of the cavernous se gments of both internal carotid arteries. CRANIOCERVICAL JUNCTION:No significant abnormality. ORBITS: visualized portions of the orbits have an unremarkable appearance. SOFT TISSUES of HEAD: No significant abnormality. CALVARIUM: Evaluation of bone windows reveals no abnormalities. PARANASAL SINUSES / MASTOID AIR CELLS: Paranasal sinuses are free from inflammatory mucosal disease. Mastoid air cells are normally pneumatized. IMPRESSION: 1. Technically limited study as described above. 2. Prominent parenchymal volume loss with disproportionate bilateral temporal lobe atrophy. 3. No acute intracranial abnormality. Signer Name: Duane Bhatti MD Signed: 01/09/2022 4:34 PM Workstation Name: [id number]
[2022-01-09] MEDS: SODIUM CHLORIDE 0.9% 1000 ML 1,000 ML IV ONE ×2 (19:28→20:21)
[2022-01-09] MEDS ORDERED: SODIUM CHLORIDE 0.9% 500 ML 500 ML ONE (19:29)
[2022-01-09 20:25] LABS: ABG Base Excess 1.9 mmol/L (-2.0-3.0); ABG HCO3 25.8 mmol/L (20.0-26.0); ABG Methemoglobin 0.4 % (0.0-1.5); ABG Oxygen Saturation 99.3 % (95.0-99.0); ABG PCO2 37.7 mm Hg; ABG PH 7.453 pH Units (7.350-7.450); ABG PO2 195.6 mm Hg (80.0-90.0)
--- NOTE | 2022-01-09 22:25 | History and Physical Report ---
History of Present Illness Date of examination: 01/09/22 Date of admission: 01/09/2022 Chief complaint: Decreased responsiveness for the last 4 hours and was sent from [facility] History of present illness: 81-year-old -[place] female who lives in [facility] was sent for decreased responsiveness since afternoon. Patient has advanced dementia. Normally alert but not oriented to time place and person. Patient with decreased responsiveness. No fever. No chills. No cough. Patient was hypoxic at the time of admission. Oxygen levels improved with oxygen supplementation. As per the son the patient is full code. After discussing the CODE STATUS the son confirms full code and wants everything to be done. No shortness of breath or orthopnea. - Past Medical History --Hypertension: Yes --Dementia: Yes - Surgical History --Additional Surgical History: CONSTIPATION - Social History --Smoking Status: Never Smoker - Medications --Home Medications: Home Medications Medication Instructions Recorded Confirmed Last Taken Type Docusate Sodium [Colace CAP] 100 mg PO QDAY PRN #15 capsule 08/08/20 08/11/20 Unknown Rx Aspirin EC [Halfprin EC] 81 mg PO QDAY #30 tablet. 08/15/20 Unknown Rx Phosphorus #1 [K-Phos Neutral] 250 mg PO BID #10 tablet 08/15/20 Unknown Rx Review of Systems ROS: Stated complaint: AMS/RESP DISTRESS Other details as noted in HPI Constitutional: denies: chills, fever Eyes: denies: eye pain, eye discharge, vision change ENT: denies: ear pain, throat pain Respiratory: denies: cough, shortness of breath, wheezing Cardiovascular: denies: chest pain, palpitations Endocrine: no symptoms reported Gastrointestinal: denies: abdominal pain, nausea, diarrhea Genitourinary: denies: urgency, dysuria, discharge Musculoskeletal: denies: back pain, joint swelling, arthralgia Skin: denies: rash, lesions Neurological: other (Decreased responsiveness). denies: headache, weakness, paresthesias Psychiatric: denies: anxiety, depression Hematological/Lymphatic: denies: easy bleeding, easy bruising Medications and Allergies Allergies Allergy/AdvReac Type Severity Reaction Status Date / Time No Known Allergies Allergy Verified 01/09/22 17:38 Home Medications Medication Instructions Recorded Confirmed Last Taken Type LORazepam [Ativan] 1 mg PO Q4HR PRN 01/10/22 01/10/22 Unknown History Morphine Sulfate 10 mg PO Q4HR PRN 01/10/22 01/10/22 Unknown History Quetiapine Fumarate [Seroquel Xr] 200 mg PO QHS PRN 01/10/22 01/10/22 Unknown History Sennosides [Senna] 8.6 mg PO QHS 01/10/22 01/10/22 Unknown History Temazepam [Restoril] 15 mg PO QHS 01/10/22 01/10/22 Unknown History Exam - Constitutional Vitals: Temp Pulse Resp BP Pulse Ox 93.9 F L 68 20 143/69 100 01/09/22 19:37 01/09/22 21:00 01/09/22 21:00 01/09/22 21:00 01/09/22 21:00 General appearance: Present: no acute distress, well-nourished - EENT Eyes: Present: PERRL ENT: hearing intact, clear oral mucosa - Neck Neck: Present: supple, normal ROM - Respiratory Respiratory effort: normal Respiratory: bilateral: CTA - Cardiovascular Heart rate: 78 Rhythm: regular Heart Sounds: Present: S1 & S2. Absent: rub, click - Extremities Extremities: no ischemia, pulses intact, pulses symmetrical, No edema Peripheral Pulses: within normal limits - Abdominal General gastrointestinal: Present: soft, non-tender, non-distended, normal bowel sounds Female genitourinary: Present: normal - Rectal Rectal Exam: deferred - Integumentary Integumentary: Present: clear, warm, dry - Musculoskeletal Musculoskeletal: generalized weakness - Psychiatric Psychiatric: other (Decreased responsiveness.,) - Neurologic Neurologic: CNII-XII intact, moves all extremities - Allied Health Allied health notes reviewed: nursing, case management Results - Labs CBC & Chem 7: 01/10/22 04:57 01/10/22 04:57 Labs: Laboratory Last Values WBC 4.0 K/mm3 (4.5-11.0) L 01/09/22 14:24 RBC 5.55 M/mm3 (3.65-5.03) H 01/09/22 14:24 Hgb 13.2 gm/dl (10.1-14.3) 01/09/22 14:24 Hct 41.0 % (30.3-42.9) 01/09/22 14:24 MCV 74 fl (79-97) L 01/09/22 14:24 MCH 24 pg (28-32) L 01/09/22 14:24 MCHC 32 % (30-34) 01/09/22 14:24 RDW 20.7 % (13.2-15.2) H 01/09/22 14:24 Plt Count 293 K/mm3 (140-440) 01/09/22 14:24 Lymph % (Auto) 19.8 % (13.4-35.0) 01/09/22 14:24 [place] % (Auto) 4.4 % (0.0-7.3) 01/09/22 14:24 Eos % (Auto) 0.1 % (0.0-4.3) 01/09/22 14:24 Baso % (Auto) 0.3 % (0.0-1.8) 01/09/22 14:24 Lymph # (Auto) 0.8 K/mm3 (1.2-5.4) L 01/09/22 14:24 [place] # (Auto) 0.2 K/mm3 (0.0-0.8) 01/09/22 14:24 Eos # (Auto) 0.0 K/mm3 (0.0-0.4) 01/09/22 14:24 Baso # (Auto) 0.0 K/mm3 (0.0-0.1) 01/09/22 14:24 Seg Neutrophils % 75.4 % (40.0-70.0) H 01/09/22 14:24 Seg Neutrophils # 3.0 K/mm3 (1.8-7.7) 01/09/22 14:24 ABG pH 7.453 pH Units (7.350-7.450) H 01/09/22 19:55 ABG pCO2 37.7 mm Hg 01/09/22 19:55 ABG pO2 195.6 mm Hg (80.0-90.0) H 01/09/22 19:55 ABG HCO3 25.8 mmol/L (20.0-26.0) 01/09/22 19:55 ABG O2 Saturation 99.3 % (95.0-99.0) H 01/09/22 19:55 ABG O2 Content 17.8 (0.0-44) 01/09/22 19:55 ABG Base Excess 1.9 mmol/L (-2.0-3.0) 01/09/22 19:55 ABG Hemoglobin 12.6 gm/dl (12.0-16.0) 01/09/22 19:55 ABG Carboxyhemoglobin 0.8 % (0.0-5.0) 01/09/22 19:55 ABG Methemoglobin 0.4 % (0.0-1.5) 01/09/22 19:55 Oxyhemoglobin 98.0 % (95.0-99.0) 01/09/22 19:55 FiO2 40 % 01/09/22 19:55 Sodium 140 mmol/L (137-145) 01/09/22 14:24 Potassium 4.6 mmol/L (3.6-5.0) 01/09/22 14:24 Chloride 104.0 mmol/L (98-107) 01/09/22 14:24 Carbon Dioxide 22 mmol/L (22-30) 01/09/22 14:24 Anion Gap 19 mmol/L 01/09/22 14:24 BUN 10 mg/dL (7-17) 01/09/22 14:24 Creatinine 0.5 mg/dL (0.6-1.2) L 01/09/22 14:24 Estimated GFR > 60 ml/min 01/09/22 14:24 BUN/Creatinine Ratio 20 % 01/09/22 14:24 Glucose 84 mg/dL (65-100) 01/09/22 14:24 Calcium 9.2 mg/dL (8.4-10.2) 01/09/22 14:24 Total Bilirubin 0.30 mg/dL (0.1-1.2) 01/09/22 14:24 AST 24 units/L (5-40) 01/09/22 14:24 ALT 15 units/L (7-56) 01/09/22 14:24 Alkaline Phosphatase 88 units/L (35-129) 01/09/22 14:24 Total Protein 6.6 g/dL (6.3-8.2) 01/09/22 14:24 Albumin 3.6 g/dL (3.9-5) L 01/09/22 14:24 Albumin/Globulin Ratio 1.2 % 01/09/22 14:24 Short CBC 01/09/22 01/10/22 Range/Units 14:24 04:57 WBC 4.0 L 3.6 L (4.5-11.0) K/mm3 Hgb 13.2 12.8 (10.1-14.3) gm/dl Hct 41.0 40.6 (30.3-42.9) % Plt Count 293 316 (140-440) K/mm3 BMP 01/09/22 01/10/22 14:24 04:57 Sodium 140 146 H Potassium 4.6 3.7 Chloride 104.0 107.4 H Carbon Dioxide 22 28 BUN 10 8 Creatinine 0.5 L 0.5 L Glucose 84 76 Calcium 9.2 9.3 Liver Function 01/09/22 01/10/22 Range/Units 14:24 04:57 Total Bilirubin 0.30 0.30 (0.1-1.2) mg/dL AST 24 20 (5-40) units/L ALT 15 14 (7-56) units/L Alkaline Phosphatase 88 88 (35-129) units/L Albumin 3.6 L 3.6 L (3.9-5) g/dL - Imaging and Cardiology Chest x-ray: report reviewed CT Scan - head: report reviewed Imaging and Cardiology: Chest x-ray No focal acute cardiopulmonary process Head CT Technically limited study Prominent parenchymal volume loss with disproportionate bilateral temporal lobe atrophy No acute intracranial abnormality Assessment and Plan Advance Directives: Yes (Full code) VTE prophylaxis?: Chemical Plan of care discussed with patient/family: Yes - Patient Problems (1) Acute respiratory failure with hypoxia Current Visit: No Status: Acute Plan to address problem: Initially patient was very hypoxic with saturations in 70s Improved with supplemental oxygen No pneumonia Empiric antibiotics (2) Acute encephalopathy Current Visit: Yes Status: Acute Plan to address problem: Etiology unclear Severe progressive dementia Son acknowledges severe dementia Son wants full code Explained the prognosis to the son Prophylactic antibiotics IV fluids (3) Hypernatremia Current Visit: Yes Status: Acute Plan to address problem: Mild IV halfnormal saline (4) Advanced dementia Current Visit: Yes Status: Chronic Plan to address problem: Supportive care (5) DVT prophylaxis Current Visit: Yes Status: Acute Plan to address problem: Patient is on anticoagulation GI prophylaxis (6) Advance care planning Current Visit: Yes Status: Acute Plan to address problem: Disease education conducted care plan discussed diagnosis and prognosis discussed with son. Patient is full code. Son acknowledges care plan +30 minutes. Son was upset that the CODE STATUS was discussed
[2022-01-09] MEDS ORDERED: METOCLOPRAMIDE 10 MG/2 ML INJ IV PRN (22:32)
[2022-01-09] MEDS ORDERED: MORPHINE 2 MG/1 ML INJ IV PRN (22:32)
[2022-01-09] MEDS ORDERED: ONDANSETRON 4 MG/2 ML INJ IV PRN (22:32)
[2022-01-09] MEDS ORDERED: ACETAMINOPHEN 325 MG TAB PO PRN (22:32)
[2022-01-09] MEDS ORDERED: DOCUSATE SODIUM 100 MG CAP PO PRN (22:50)
[2022-01-09] MEDS ORDERED: FAMOTIDINE 20 MG/2 ML INJ IV SCH (23:00)
[2022-01-09] MEDS ORDERED: D5W/0.9% NACL 1,000 ML IV SCH (23:00)
[2022-01-09] MEDS ORDERED: CEFEPIME/NS 2 GM/100 ML 2 GM/100 ML BAG IV SCH (23:00)
[2022-01-09] MEDS: CEFEPIME/NS 2 GM/100 ML 2 GM/100 ML BAG IV SCH (23:05)
[2022-01-10 05:16] LABS: Basophils % (Auto) 0.7 % (0.0-1.8); Eosinophils % (Auto) 0.4 % (0.0-4.3); Hematocrit 40.6 % (30.3-42.9); Hemoglobin 12.8 gm/dl (10.1-14.3); Lymphocytes # (Auto) 0.9 K/mm3 (1.2-5.4); Lymphocytes % (Auto) 26.4 % (13.4-35.0); Mean Corpuscular HGB Conc 32 % (30-34); Mean Corpuscular Volume 74 fl (79-97); Monocytes # (Auto) 0.3 K/mm3 (0.0-0.8); Monocytes % (Auto) 7.9 % (0.0-7.3); Platelet Count 316 K/mm3 (140-440); Red Blood Count 5.52 M/mm3 (3.65-5.03)
[2022-01-10 05:18] LABS: Red Cell Distribution Width 20.6 % (13.2-15.2)
[2022-01-10 05:39] LABS: Alanine Aminotransferase 14 units/L (7-56); Albumin 3.6 g/dL (3.9-5); Blood Urea Nitrogen 8 mg/dL (7-17); Calcium 9.3 mg/dL (8.4-10.2); Hemolysis Index 0
[2022-01-10 05:41] LABS: BUN/Creatinine Ratio 16
[2022-01-10] MEDS ORDERED: SODIUM CHLORIDE 0.45% 500 ML IV SCH (07:00)
[2022-01-10] MEDS ORDERED: METOCLOPRAMIDE 10 MG/2 ML INJ IV PRN (08:00)
[2022-01-10] MEDS: FAMOTIDINE 10 MG TAB PO SCH ×2 (09:25→21:16)
[2022-01-10] MEDS: HEPARIN 5,000 UNIT/1 ML VIAL SUB-Q SCH ×2 (09:25→21:17)
--- NOTE | 2022-01-10 11:58 | Consultation ---
History of Present Illness - Reason for Consult Consult date: 01/10/22 - History of Present Illness 81-year-old female past medical history hypertension, dementia who lives in a [facility] presented to hospital due to decreased responsiveness. She reportedly is typically alert but not oriented. Was found by staff to have decreased fussiness. She is known to be hypoxic on admission. Afebrile with low temperatures to 93.9, white count 3.6. Normal renal function. Procalcitonin low. Currently on cefepime. No cultures were reviewed. Imaging personally reviewed: Chest x-ray: No obvious acute pneumonia Head CT: No hemorrhage Past History Past Medical History: other (Dementia) Past Surgical History: No surgical history Social history: other (Lives in personal [facility]) Family history: hypertension Medications and Allergies Allergies Allergy/AdvReac Type Severity Reaction Status Date / Time No Known Allergies Allergy Verified 01/09/22 17:38 Home Medications Medication Instructions Recorded Confirmed Last Taken Type LORazepam [Ativan] 1 mg PO Q4HR PRN 01/10/22 01/10/22 Unknown History Morphine Sulfate 10 mg PO Q4HR PRN 01/10/22 01/10/22 Unknown History Quetiapine Fumarate [Seroquel Xr] 200 mg PO QHS PRN 01/10/22 01/10/22 Unknown History Sennosides [Senna] 8.6 mg PO QHS 01/10/22 01/10/22 Unknown History Temazepam [Restoril] 15 mg PO QHS 01/10/22 01/10/22 Unknown History Active Meds: Active Medications Acetaminophen (Acetaminophen 325 Mg Tab) 650 mg PO Q4H PRN PRN Reason: Pain MILD(1-3)/Fever >100.5/MCGEE Docusate Sodium (Docusate Sodium 100 Mg Cap) 100 mg PO QDAY PRN PRN Reason: Constipation Famotidine (Famotidine 10 Mg Tab) 10 mg PO BID DALTON Last Admin: 01/10/22 09:25 Dose: 10 mg Heparin Sodium (Porcine) (Heparin 5,000 Unit/1 Ml Vial) 5,000 unit SUB-Q Q12HR DALTON Last Admin: 01/10/22 09:25 Dose: 5,000 unit Cefepime HCl (Cefepime/Ns 2 Gm/100 Ml) 2 gm in 100 mls @ 200 mls/hr IV Q12H DALTON; Protocol Last Admin: 01/09/22 23:05 Dose: 200 mls/hr Sodium Chloride (Nacl 0.45%) 500 mls @ 50 mls/hr IV DIRECT DALTON Metoclopramide HCl (Metoclopramide 10 Mg/2 Ml Inj) 5 mg IV Q6H PRN PRN Reason: Nausea And Vomiting Morphine Sulfate (Morphine 2 Mg/1 Ml Inj) 2 mg IV Q4H PRN PRN Reason: Pain, Moderate (4-6) Ondansetron HCl (Ondansetron 4 Mg/2 Ml Inj) 4 mg IV Q8H PRN PRN Reason: Nausea And Vomiting Sodium Chloride (Sodium Chloride 0.9% 10 Ml Flush Syringe) 10 ml IV PRN PRN PRN Reason: LINE FLUSH Last Admin: 01/10/22 09:26 Dose: 10 ml Physical Examination - Physical Exam Narrative exam: Physical Exam: Constitutional: Sleeping, poorly arousable Head, Ears, Nose: Normocephalic, atraumatic. External ears, nose normal Eyes: Conjunctivae/corneas clear. No icterus. No ptosis. Neck: Supple, no meningeal signs Oral: dentition fair, no thrush Cardiovascular: S1, S2 normal. Respiratory: Good air entry, clear to auscultation bilaterally GI: Soft, non-tender; bowel sounds normal. No peritoneal signs. Musculoskeletal: No pedal edema, no cyanosis. Skin: No rash or abscess Hem/Lymphatic: No palpable cervical or supraclavicular nodes. No lymphangitis Psych: Unable to assess Neurological: Nonresponsive - Constitutional Vitals: Vital Signs Temp Pulse Resp BP Pulse Ox 97.3 F L 25 L 16 129/93 66 L 01/10/22 05:29 01/10/22 05:29 01/10/22 05:29 01/10/22 05:29 01/10/22 05:29 Temperature -Last 24 Hours Temperature 97.3 F Temperature 97.8 F Temperature 97.5 F Temperature 93.9 F Temperature 98.9 F Results - Labs CBC & Chem 7: 01/10/22 04:57 01/10/22 04:57 Labs: Abnormal lab results 01/09/22 01/09/22 01/09/22 Range/Units 14:24 14:24 19:55 WBC 4.0 L (4.5-11.0) K/mm3 RBC 5.55 H (3.65-5.03) M/mm3 MCV 74 L (79-97) fl MCH 24 L (28-32) pg RDW 20.7 H (13.2-15.2) % [place] % (Auto) (0.0-7.3) % Lymph # (Auto) 0.8 L (1.2-5.4) K/mm3 Seg Neutrophils % 75.4 H (40.0-70.0) % ABG pH 7.453 H (7.350-7.450) pH Units ABG pO2 195.6 H (80.0-90.0) mm Hg ABG O2 Saturation 99.3 H (95.0-99.0) % Sodium (137-145) mmol/L Chloride (98-107) mmol/L Creatinine 0.5 L (0.6-1.2) mg/dL Albumin 3.6 L (3.9-5) g/dL 01/10/22 01/10/22 Range/Units 04:57 04:57 WBC 3.6 L (4.5-11.0) K/mm3 RBC 5.52 H (3.65-5.03) M/mm3 MCV 74 L (79-97) fl MCH 23 L (28-32) pg RDW 20.6 H (13.2-15.2) % [place] % (Auto) 7.9 H (0.0-7.3) % Lymph # (Auto) 0.9 L (1.2-5.4) K/mm3 Seg Neutrophils % (40.0-70.0) % ABG pH (7.350-7.450) pH Units ABG pO2 (80.0-90.0) mm Hg ABG O2 Saturation (95.0-99.0) % Sodium 146 H (137-145) mmol/L Chloride 107.4 H (98-107) mmol/L Creatinine 0.5 L (0.6-1.2) mg/dL Albumin 3.6 L (3.9-5) g/dL Assessment and Plan Cultures: Blood culture no growth so far A/P: 81-year-old female past medical history severe dementia now with: #SIRS/sepsis: With low temperatures, leukopenia. Unclear etiology. #Acute encephalopathy: Poorly responsive in setting of severe dementia. #Acute hypoxic respiratory failure: Present on admission, improved with oxygen. No pneumonia seen on chest x-ray Recs: -Check COVID-19 PCR -De-escalate cefepime to ceftriaxone 2 g over 24 hours Thank you for the consult, we will continue to follow. Larry Youngblood MD [facility] ([facility]) O: [phone] F: [phone]
--- NOTE | 2022-01-10 12:52 | Discharge Summary ---
Providers - Providers Date of Admission: 01/09/22 22:32 Date of discharge: 01/10/22 Attending physician: ALANNA CACERES MD 01/09/22 22:32 Consult to Physician [CONS] Routine Comment: Consulting Provider: SILVINA BEARD Physician Instructions: Reason For Exam: sepsis Primary care physician: ADAN OLVERA Hospitalization Reason for admission: Acute metabolic encephalopathy Condition: Serious Pertinent studies: Reviewed. Procedures: None. Hospital course: Patient is a 81-year-old female past medical history of progressive dementia who presented from a personal half-way for decreased responsiveness the afternoon prior to presentation. At baseline, the patient is not oriented to time place or person. It was reported that the patient was hypoxic at the time of admission. A discussion was had with the patient's son, and he revoked the DNR status to full code. In the ED, patient was found to be hemodynamically stable. Labs were unremarkable. Patient was admitted for management of acute metabolic encephalopathy. Patient has been on room air since being transferred to the floor. Patient's labs remain unremarkable. Patient had negative lactic acid and procalcitonin. Antibiotics are being discontinued. The patient's encephalopathy is likely worsening/progression of her dementia. Patient is medically clear for discharge. Disposition: 01 HOME / SELF CARE / HOMELESS Final Discharge Diagnosis (Prints w/discharge instructions): Acute hypoxic respiratory failure, acute metabolic encephalopathy, hyponatremia, advanced dementia Time spent for discharge: 45 min Core Measure Documentation - Palliative Care Palliative Care/ Comfort Measures: Hospice Care - Core Measures Any of the following diagnoses?: history only Exam - Constitutional Vitals: Temp Pulse Resp BP Pulse Ox 97.3 F L 25 L 16 129/93 66 L 01/10/22 05:29 01/10/22 05:29 01/10/22 05:29 01/10/22 05:29 01/10/22 05:29 General appearance: Present: no acute distress, well-nourished, other (Baseline dementia) - EENT Eyes: Present: PERRL, EOM intact ENT: hearing intact, clear oral mucosa, dentition normal - Neck Neck: Present: supple, normal ROM - Respiratory Respiratory effort: normal Respiratory: bilateral: CTA - Cardiovascular Rhythm: regular Heart Sounds: Present: S1 & S2 - Extremities Extremities: no ischemia, pulses intact, pulses symmetrical, No edema, normal temperature, normal color Peripheral Pulses: within normal limits - Abdominal General gastrointestinal: Present: soft, non-tender, non-distended, normal bowel sounds Female genitourinary: Present: deferred - Rectal Rectal Exam: deferred - Integumentary Integumentary: Present: clear, warm, dry - Musculoskeletal Musculoskeletal: generalized weakness - Psychiatric Psychiatric: cooperative - Neurologic Neurologic: CNII-XII intact, moves all extremities - Allied Health Allied health notes reviewed: nursing Plan Activity: advance as tolerated Diet: regular Additional Instructions: Patient is a 81-year-old female past medical history of progressive dementia who presented from a personal half-way for decreased responsiveness the afternoon prior to presentation. At baseline, the patient is not oriented to time place or person. It was reported that the patient was hypoxic at the time of admission. A discussion was had with the patient's son, and he revoked the DNR status to full code. In the ED, patient was found to be hemodynamically stable. Labs were unremarkable. Patient was admitted for management of acute metabolic encephalopathy. Patient has been on room air since being transferred to the floor. Patient's labs remain unremarkable. Patient had negative lactic acid and procalcitonin. Antibiotics are being discontinued. The patient's encephalopathy is likely worsening/progression of her dementia. Patient is medically clear for discharge. Care Plan Goals: Patient is medically clear for discharge. Assessment: Patient is a 81-year-old female past medical history of progressive dementia who presented from a personal half-way for decreased responsiveness the afternoon prior to presentation. At baseline, the patient is not oriented to time place or person. It was reported that the patient was hypoxic at the time of admis afsaneh. A discussion was had with the patient's son, and he revoked the DNR status to full code. In the ED, patient was found to be hemodynamically stable. Labs were unremarkable. Patient was admitted for management of acute metabolic encephalopathy. Patient has been on room air since being transferred to the floor. Patient's labs remain unremarkable. Patient had negative lactic acid and procalcitonin. Antibiotics are being discontinued. The patient's encephalopathy is likely worsening/progression of her dementia. Patient is medically clear for discharge. Follow up with: ADAN OLVERA MD [Primary Care Provider] - 7 Days
[2022-01-10] MEDS: CEFEPIME/NS 2 GM/100 ML 2 GM/100 ML BAG IV SCH (12:54)
[2022-01-10] MEDS ORDERED: cefTRIAXone/NS 2 GM/100 ML 2 GM/100 ML BAG IV SCH (13:00)
[2022-01-10] MEDS ORDERED: hydrALAZINE 20 MG/1 ML INJ IV PRN (19:50)
[2022-01-10 22:17] LABS: C-Reactive Protein 0.4 mg/dL (0.00-1.30)
[2022-01-10 22:35] VITALS: BP 114/69
== END 2022-01-10 21:50 | disposition still patient (30) ==
LOC: ED 13:06 → 3A 22:32 → INTOOBSV 22:32 → 3A 01-10 00:34
PROVIDERS: ADMIT Internal Medicine; ATTEND Student in an Organized Health Care Education/Training Program
DX: U07.1 COVID-19 (principal); A41.9 Sepsis, unspecified organism; J96.01 Acute respiratory failure with hypoxia; G93.40 Encephalopathy, unspecified; E87.0 Hyperosmolality and hypernatremia; F03.90 Unspecified dementia, unspecified severity, without behavioral disturbance, psychotic disturbance, mood disturbance, and anxiety; I10 Essential (primary) hypertension; K59.00 Constipation, unspecified; R41.82 Altered mental status, unspecified; Z79.82 Long term (current) use of aspirin; Z79.899 Other long term (current) drug therapy
CPT/HCPCS: 36415; 70450; 71045; 80053; 82140; 82728; 82803; 82947; 83615; 84145; 85025; 85379; 86140; 93005; 96361; 96365; 96372; 96375; 99285; G0378; J0360; J0692; J1644; J3490; J7040; J7042; U0003